=== PATIENT | male | born 1945 | race Caucasian/White ===

== ENCOUNTER 2017-04-06 07:48 | Inpatient (IN) | payer OTHER ==
[2017-03-08 10:29] VITALS: BMI 25.0
--- NOTE | 2017-03-08 11:11 | PAT Medication Instructions ---
Service Date Mar 08, 2017. Current Home Medication List Ascorbic Acid (Vitamin C), 250 MG PO QPM Aspirin (Aspirin Ec), 162 MG PO QAM Atorvastatin (Lipitor), 40 MG PO QPM Famotidine (Pepcid), 20 MG PO BID Folic Acid (Folic Acid), 800 MCG PO QPM Gabapentin (Neurontin), 400 MG PO Insulin Glargine (Toujeo Solostar), 22 UNITS INJ QPM Lisinopril (Zestril), 2.5 MG PO QAM Metformin Hcl (Glucophage), 1,000 MG PO BID Metoprolol Tartrate (Lopressor) (Lopressor), 12.5 MG PO BID [Iron], 65 UNITS PO QPM Medication Instructions For Your Scheduled Surgery - Check with surgeon and health safety instructor for instructions: Aspirin (Aspirin Ec), 162 MG PO QAM - Hold the following medications 48 hours prior to surgery: Metformin Hcl (Glucophage), 1,000 MG PO BID - Hold the following medications the morning of surgery: Famotidine (Pepcid), 20 MG PO BID Gabapentin (Neurontin), 400 MG PO Lisinopril (Zestril), 2.5 MG PO QAM - Take the following medications the morning of surgery with a sip of water: Metoprolol Tartrate (Lopressor) (Lopressor), 12.5 MG PO BID - Take the following medications as scheduled the night before surgery: [Iron], 65 UNITS PO QPM Metoprolol Tartrate (Lopressor) (Lopressor), 12.5 MG PO BID Insulin Glargine (Toujeo Solostar), 22 UNITS INJ QPM Folic Acid (Folic Acid), 800 MCG PO QPM Famotidine (Pepcid), 20 MG PO BID Atorvastatin (Lipitor), 40 MG PO QPM Ascorbic Acid (Vitamin C), 250 MG PO QPM If you have any questions please call us at [phone] or [phone] or [phone]
--- NOTE | 2017-03-08 11:58 | DIAGNOSTIC IMAGING REPORT ---
CHEST PREADMISSION(PA/LAT) CLINICAL HISTORY: 71 years-old Male presenting with preoperative assessment. TECHNIQUE: PA and lateral views of the chest were obtained. COMPARISON: None. FINDINGS: Median sternotomy wires and mediastinal surgical clips noted with evidence of coronary artery bypass grafting. Mild elevation of the left hemidiaphragm. Lungs and pleural spaces clear. Osseous structures normal. Upper abdomen normal. IMPRESSION: 1. No acute cardiopulmonary disease. Electronically signed by: Bg Mcgrath M.D. 03/08/2017 11:56 AM Dictated Date/Time: 03/08/2017 11:55 AM
[2017-03-08 12:47] LABS: PARTIAL THROMBOPLASTIN RATIO 0.9; PROTHROMBIN TIME (PATIENT) 10.3 SECONDS (9.0-12.0)
[2017-03-08 12:56] LABS: HEMATOCRIT 36.8 % (42-52); MEAN CELL VOLUME 90.4 fL (80-100); MEAN CORPUSCULAR HEMOGLOBIN 30.7 pg (25-34); MEAN PLATELET VOLUME 12.4 fL (7.4-10.4); PLATELET COUNT 121 K/uL (130-400); RED BLOOD COUNT 4.07 M/uL (4.7-6.1); WHITE BLOOD COUNT 6.27 K/uL (4.8-10.8)
[2017-03-08 12:57] LABS: BASO % 0.5 %; BASO ABS # 0.03 K/uL (0-0.2); COMPLETE YES; EOS % 4.5 %; IG% 0.2 %; LARGE PLATELETS 1+; LYMPH % 26.8 %; LYMPH ABS # 1.68 K/uL (1.2-3.4); MONO % 8.3 %; NEUT % 59.7 %; PLT ESTIMATE DECREASED
[2017-03-08 13:00] LABS: ESTIMATED AVERAGE GLUCOSE 275 mg/dl; HA1C FLAG Normal (Normal)
[2017-03-08 13:09] LABS: BLOOD UREA NITROGEN 29 mg/dl (7-18); BUN/CREATININE RATIO 29.8 (10-20); C-REACTIVE PROTEIN < 0.29 mg/dl (0-0.29); CALCIUM 9.1 mg/dl (8.5-10.1); CARBON DIOXIDE 25 mmol/L (21-32); CHLORIDE 104 mmol/L (98-107); CREATININE 0.97 mg/dl (0.60-1.40); GLUCOSE 322 mg/dl (70-99); POTASSIUM 4.6 mmol/L (3.5-5.1); SODIUM 139 mmol/L (136-145)
[2017-03-08 13:21] LABS: BETA-HYDROXYBUTYRATE 1.34 mg/dL (0.2-2.81)
--- NOTE | 2017-04-02 22:27 | HISTORY & PHYSICAL EXAMINATION ---
DATE OF ADMISSION: 04/06/2017 CHIEF COMPLAINT: Bilateral knee pain, left side greater than right. 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 He has a long history of bilateral knee pain and discomfort. He describes it has gotten worse over time. It was more of the right side in the past but now the left side is more bothersome for him. He was actually scheduled for surgery by Dr. Alarcon but canceled due to his poor glucose control. He has been working hard with his doctor, Dr. Blair to get this under better control. 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 He now would like to have his left knee replaced. He is open to do the right one 3 months later. He has to use a cane to get around. He cannot walk anything more than a block at most. He can ride his tractor and that is about all he can do activity high. Of note, the patient does have a history of blood clot in his right leg after heart surgery in 2015. He apparently had 4-vessel CABG at [facility]. He has been taken off his Coumadin. He has no known clotting disorder. PAST MEDICAL HISTORY: 1. Coronary artery disease, status post 4-vessel bypass in [facility] 12/23/2015. 2. Elevated cholesterol. 3. Type 2 diabetes, poorly controlled. 4. Hypertension. PAST SURGICAL HISTORY: Include 4-vessel CABG done on 01/20/2016. ALLERGIES: None. CURRENT MEDICINES: Include: 1. Metformin 1000 mg twice a day. 2. Gabapentin 400 mg 3 times a day. 3. Atorvastatin 40 mg. 4. Metoprolol 25 mg a day. 5. Famotidine 20 mg a day. 6. Glimepiride 1 mg a day. 7. Insulin unspecified dose. 8. Low dose aspirin twice a day. SOCIAL HISTORY: A 71-year-old male patient from [place]. 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 FAMILY HISTORY: Negative for diabetes, heart disease or blood clots. REVIEW OF SYSTEMS: Significant for poorly controlled diabetes. He has been working hard to get this under better control. He does have a history of a DVT in his right leg apparently after his heart surgery. No known clotting disorder. He is off blood thinners. PHYSICAL EXAMINATION: GENERAL: Reveals a healthy pleasant elderly male. He looks a little older than his stated age. HEENT: Benign. NECK: Supple. No lymphadenopathy. LUNGS: Clear to auscultation. HEART: Has a regular rate and rhythm. ABDOMEN: Soft, nontender, nondistended. EXTREMITIES: Grossly neurovascularly intact except as follows: Examination of both knees reveals the patient walks with a severe waddling gait with varus alignment with varus stress bilaterally. He comes in using a cane. His both knees appear very unstable. Examination of the left knee reveals a marked ganglion and large fluid collection medial to the knee. He has varus deformity. Range of motion is 15 to about 90 degrees and very stiff. No pain with hip motion. Slight stasis changes distally. Examination of the right knee reveals a marked varus deformity. Some slight stasis and dysvascular changes. Range of motion is 15-90. No pain with hip motion. X-RAYS: X-rays of both knees were reviewed. It shows advanced bilateral knee DJD, look about equal severity. He has a large soft tissue mass on the medial side of the left knee. Some fragmentation of the tibial plateau. 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 He is markedly debilitated by his knee arthritis. Unfortunately, he has pretty poor glucose control despite valiant efforts to control it. PLAN: We talked about treatment. He really like to have his both knees replaced as he is debilitated by his disease. We talked about the increased risk with his poorly controlled diabetes and he wants to proceed. We will take him to the operating room and do a left knee replacement. Hopefully, we will be able to do the right one 3 months later. We will likely put vancomycin in the cement. The risks and benefits of this procedure were explained to the patient including but not limited to DVT, PE, , infection, neurological, neurovascular, bleeding problems, pain, limited range of motion, stiffness, failure to relieve symptoms, incomplete relief of symptoms, need for further surgery in the future, fracture, leg length inequality, nerve palsy, infection, etc. The patient understands and desires to proceed. Informed consent was obtained. We will likely have the [facility] hospitalist following him and help with his diabetes controlled in the hospital. His bread jockey is Dr. Turner with [facility] in [place]. We can have them follow him as needed. As far as discharge plans, he is planning to be discharged to home using [facility] home health program.
[2017-04-06] VITALS (10 sets, daily range): BP systolic 117–166; BP diastolic 67–98; PULSE 61–73; TEMP 36.2–37; O2SAT 95–99; Ht 167.6 cm; Wt 70.3 kg
[~2017-04-06] VITALS: Ht 167.6 cm; Wt 70.3 kg
[2017-04-06] MEDS: BUPIVACAINE LIPOSOME 266 MG, BUPIVACAINE/EPINEPHRINE INJ 50 ML, SODIUM CHLORIDE 0.9% PF... INFIL SCH ×6 (06:00→12:53)
[~2017-04-06 07:48] MED LIST: ACETAMINOPHEN 500 MG TAB PO SCH; ASCO250T4 PO; ASPI81TA28 PO; BUPIVACAINE 0.25% 30 ML VIAL ONE; BUPIVACAINE 0.5 % 5 MG/1 ML PF 10ML VIAL ONE; CEFAZOLIN 2000MG IV PUSH 10 ML IV SCH; FAMO20TA11 PO; FAMOTIDINE 20 MG TAB PO SCH; FOLI800T PO; GABA-113 PO; GABAPENTIN 300 MG CAP PO SCH; INSU1.2I INJ; IRON PO; LACTATED RINGER'S 1000ML 1,000 ML IV SCH; LACTATED RINGER'S 1000ML 500 ML IV ONE; LACTATED RINGER'S 1000ML IV SCH; LISI-729 PO; LPT/40 PO; METF-384 PO; METO25TA56 PO; METOCLOPRAMIDE HCL 10 MG TAB PO SCH; SCOPOLAMINE 1.5 MG TDSY TD SCH; TRANEXAMIC ACID INJ 1,000 MG in SYRINGE 0 ML IV SCH
--- NOTE | 2017-04-06 08:52 | History & Physical Bridge Note ---
H&P Re-Evaluation Bridge Note: I have examined the patient, reviewed the History & Physical and in the interval since the performance of the History & Physical I have noted the following changes of clinical significance: No changes noted
[2017-04-06] MEDS ORDERED: FENTANYL CITRATE INJ 50 MCG/1 ML 2 ML VIAL ONE (09:47)
[2017-04-06] MEDS ORDERED: MIDAZOLAM HCL 1 MG/ML 2ML VIAL ONE (09:47)
[2017-04-06] MEDS ORDERED: PROPOFOL IV EMULSION 10 MG/ML 20 ML VIAL IV ONE (09:47)
[2017-04-06] MEDS ORDERED: LIDOCAINE HCL 2% 2 ML VIAL (20MG/ML) ONE (09:47)
[2017-04-06] MEDS ORDERED: BACITRACIN 50000 UNIT VIAL ONE (10:59)
[2017-04-06] MEDS ORDERED: BUPIVACAINE LIPOSOME 1/3% 266 MG/20 ML VIAL INFIL ONE (10:59)
[2017-04-06] MEDS ORDERED: BUPIVACAINE/EPINEPHRINE 0.25% 1:200,000 30 ML VIAL ONE (10:59)
[2017-04-06] MEDS ORDERED: VANCOMYCIN HCL 1000MG/20ML VIAL ONE (11:00)
[2017-04-06] MEDS ORDERED: ONDANSETRON INJ 2 MG/ML 2 ML VIAL IV PRN ×2 (11:15→13:15)
[2017-04-06] MEDS ORDERED: ATROPINE SULFATE 0.1 MG/ML 5ML SYR IV PRN (11:15)
[2017-04-06] MEDS ORDERED: EpHEDrine SULFATE INJ 50 MG/ML AMP IV PRN (11:15)
[2017-04-06] MEDS ORDERED: EpHEDrine SULFATE INJ 50 MG/ML AMP ONE (12:11)
[2017-04-06] MEDS ORDERED: SODIUM CHLORIDE 0.9% INJ 10 ML VIAL ONE (12:11)
[2017-04-06] MEDS ORDERED: GLYCOPYRROLATE INJ 0.2 MG/ML VIAL ONE (12:13)
[2017-04-06] MEDS: SODIUM CHLORIDE 0.9% PF 50 ML VIAL ONE ×2 (12:56→13:01)
--- NOTE | 2017-04-06 13:10 | [facility] Post Operative Brief Note ---
Immediate Operative Summary Operative Date Apr 06, 2017. Pre-Operative Diagnosis Left knee degenerative joint disease Post-Operative Diagnosis same as pre-operative Procedure(s) Performed Left Total Knee Replacement- Cemented Surgeon Dr. Forrest Tay Test Operator Surgeon(s) ADALBERTO Banks Estimated Blood Loss 50ml Findings Left Knee DJD Fluids (cc crystalloids) 1400 cc Specimens Permanent Specimen A: Left knee bone and tissue Drains None Anesthesia Spinal Complication(s) None Disposition Recovery Room / PACU
[2017-04-06] MEDS ORDERED: METOCLOPRAMIDE HCL INJ 5 MG/ML 2 ML VIAL IV PRN (13:15)
[2017-04-06] MEDS ORDERED: ALUMINUM/MAGNESIUM/SIMETH (MAALOX MAX) 30 ML UDC PO PRN (13:15)
[2017-04-06] MEDS ORDERED: ZOLPIDEM TARTRATE 5 MG TAB PO PRN (13:15)
[2017-04-06] MEDS ORDERED: GLUCOSE 40% GEL 15 GM TUBE PO PRN (13:15)
[2017-04-06] MEDS ORDERED: GLUCAGON FOR INJ 1 MG VIAL SQ PRN (13:15)
[2017-04-06] MEDS ORDERED: GLUCOSE 10 TABS/TUBE PO PRN (13:15)
[2017-04-06] MEDS ORDERED: SILVER SULFADIAZINE 1% CR 50 GM JAR EXT PRN (13:15)
[2017-04-06] MEDS ORDERED: OXYCODONE HCL IR 5 MG TAB (IMMEDIATE RELEASE) PO PRN (13:15)
[2017-04-06] MEDS ORDERED: HYDROmorphone INJ 0.5 MG/0.5 ML SYR IV PRN ×2 (13:15→13:30)
[2017-04-06] MEDS ORDERED: BISACODYL 10 MG SUPP PR PRN (13:15)
[2017-04-06] MEDS ORDERED: MAGNESIUM HYDROXIDE SUSP 30 ML UDC PO PRN (13:15)
[2017-04-06] MEDS ORDERED: DEXTROSE 50% 50 ML SYR IV PRN (13:15)
--- NOTE | 2017-04-06 14:35 | Anesthesiology Progress Note ---
Anesthesia Post Op Note Date & Time Apr 06, 2017 at 14:35 Vital Signs Pain Intensity: 0 Vital Signs Past 12 Hours Date Time Temp Pulse Resp B/P (MAP) Pulse Ox O2 Delivery O2 Flow Rate FiO2 04/06/17 14:23 61 12 97 04/06/17 14:23 36.7 62 12 04/06/17 14:21 125/71 04/06/17 14:18 66 13 98 04/06/17 14:18 62 13 04/06/17 14:16 118/68 04/06/17 14:13 61 04/06/17 14:13 63 16 97 04/06/17 14:11 125/66 04/06/17 14:08 67 15 97 04/06/17 14:08 65 15 04/06/17 14:06 130/78 04/06/17 14:03 65 10 99 04/06/17 14:03 62 10 04/06/17 14:01 139/72 04/06/17 13:58 60 13 04/06/17 13:58 58 13 99 04/06/17 13:56 131/79 04/06/17 13:53 59 12 99 04/06/17 13:53 59 12 04/06/17 13:51 135/77 04/06/17 13:48 73 13 99 04/06/17 13:48 72 13 04/06/17 13:46 135/72 04/06/17 13:43 72 15 04/06/17 13:43 70 15 97 04/06/17 13:41 136/77 04/06/17 13:38 70 14 04/06/17 13:38 69 14 98 04/06/17 13:36 136/80 04/06/17 13:33 73 8 98 04/06/17 13:33 73 8 04/06/17 13:31 150/71 04/06/17 13:28 57 8 04/06/17 13:28 60 8 98 04/06/17 13:26 130/70 04/06/17 13:23 72 14 97 04/06/17 13:23 68 14 04/06/17 13:20 131/69 04/06/17 13:13 36.9 75 16 133/74 95 Oxymask 7 04/06/17 08:18 36.8 72 20 163/98 98 Room Air Notes Mental Status: alert / awake / arousable, participated in evaluation Pt Amnestic to Procedure: Yes Nausea / Vomiting: adequately controlled Pain: adequately controlled Airway Patency, RR, SpO2: stable & adequate BP & HR: stable & adequate Hydration State: stable & adequate Neuraxial Anesthesia: was administered, sensory block is resolving Anesthetic Complications: no major complications apparent
--- NOTE | 2017-04-06 14:36 | OPERATIVE REPORT ---
DATE OF OPERATION: 04/06/2017 PREOPERATIVE DIAGNOSIS: Left knee degenerative joint disease. POSTOPERATIVE DIAGNOSIS: Same. PROCEDURE PERFORMED: Left cemented posterior stabilized total knee arthroplasty. COMPLICATIONS: None. ESTIMATED BLOOD LOSS: 50 mL FLUID REPLACEMENT: 1400 mL crystalloid fluid replacement. TOURNIQUET TIME: 70 minutes at 300 mmHg. ANESTHESIA: Spinal with adductor canal block. DRAINS: None. SPECIMENS: Left knee sent for pathology. 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 He has been through extensive conservative treatment over the years. It has got to the point where he is having trouble to even walk with the use assistance devices. Both knees were severely debilitated. He had been scheduled for surgery previously, but it was canceled due to poorly controlled diabetes. He and his medical doctor has been trying to manage this and felt like it has been optimized as good as possible. The patient has now elected to proceed with total knee arthroplasty. OPERATIVE FINDINGS: Operative findings revealed advanced left knee DJD. He had a very stiff knee with about a 20-25 degree flexion contracture and could flex to only about 90 degrees. He has a fixed varus deformity to his knee and a very large ganglion, probably about 10 cm in diameter over the medial side of his knee. He had grade 4 changes of the medial femoral condyle and medial tibial plateau. He had extensive thickening of the medial tissues and adherence to the bone. OPERATIVE IMPLANTS: Operative implants consisted of: 1. Biomet Vanguard size 65 left posterior stabilized femoral component. 2. Biomet size 75 tibial tray. 3. A 12-mm posterior stabilized polyethylene plus insert. 4. A 34 x 8.5 all poly patella. OPERATIVE PROCEDURE: The patient taken to the operating room, identified and placed on the operating table in supine position. All contact areas were appropriately padded. IV antibiotics were provided by anesthesia team. A spinal anesthetic and adductor canal block had been provided in the holding area. Roque catheter was placed in sterile fashion. The left thigh tourniquet was then placed and the left lower extremity was then prepped and draped in the usual sterile fashion. Left leg was elevated and exsanguinated with Esmarch and tourniquet was placed at 300 mmHg. An anterior approach to the left knee was then performed through a longitudinal incision centered over the patella. Sharp dissection was carried out through the subcutaneous tissues down to the level of the extensor mechanism. A medial parapatellar arthrotomy incision was made. Extensive subperiosteal dissection was carried out medially to release the entire medial and posteromedial side of his tibia. We had to do this to release the fixed varus deformity. There was a very large ganglion, which we made several holes on the inside of the ganglion. I did not feel like could it could go through the subcutaneous tissues as it would risk devascularization. We decompressed this ganglion completely. The knee was flexed. The osteophytes were taken off the distal femur. The ACL and PCL released from the distal femur and the tibia subluxated anteriorly. The external tibial alignment jig was then placed in the anterior face of the tibia and adjusted 14 mm medially. Proximal tibial cut was made to remove about a millimeter of bone from the most deficient aspect of the medial tibial plateau. The tibia was then sized to a size 75. Some osteophytes were taken off medial and posteromedially. I did do an extensive release of the posteromedial side. Attention was then drawn to the femur. The distal femur was entered with a sharp drill bit. Intramedullary canal was suctioned. A left 6-degree valgus cutting guide was placed. Distal femoral cutting block was pinned in place. Distal femoral cut was made to take an additional 3 mm of bone off the distal femur. The femur was then sized to a size 65. We downsized this slightly. The AP cutting block was pinned parallel to the epicondylar axis, which was 5 degrees of external rotation. The anterior cut, anterior chamfer, posterior cut, posterior chamfer cuts were made. Box cutting guide was placed and adjusted slightly lateral and the box cut was made. The knee was flexed. The remnants of the medial and lateral menisci were excised. The osteophytes were taken off the posterior aspect of the femur. Trial femoral component was placed. Tibial tray was pinned in maximum external rotation and the drill and the stem punch were used to create defect in proximal tibia for the tibial tray. The knee was then trialed and the 12-mm insert fit most appropriately. It was a little bit looser in flexion, but still a little bit tight in extension. The varus valgus was a little bit lax, but he has continued to have just a slight bit of flexion contracture. I did as much release as I felt possible. I therefore placed the PS plus in order to provide some additional varus valgus stability. Attention was then drawn to the patella. The patella was cleaned of all soft tissues. Patella thickness measured 21 mm in thickness and was cut down to 13. It was sized to a size 34 patella. Lug holes were drilled for a 34 patella. Lateral osteophyte was removed. Patellar button was placed. Knee was taken through range of motion and the patella tracked nicely with no thumbs test. Attention was then drawn toward placement of permanent components. All trial components were removed. Bone plug was placed in the distal femur to limit blood loss. A double batch of Palacos G cement was mixed. I did add an additional gram of vancomycin due to his poorly controlled diabetes and the severity of his knee. A size 65 left posterior stabilized femoral component, size 75 tibial tray, a 12-mm posterior stabilized polyethylene plus insert, and a 34 x 8.5 all poly patella then cemented in place. Knee was brought out into full extension until cement hardened. A final cement check was then performed. Pericapsular tissues were injected with a total of 100 mL of a combination of 20 mL of Exparel, 30 mL of normal saline, 50 mL of 0.25% Marcaine with epinephrine. The patient did receive 1 gram of tranexamic acid. The tourniquet was then let down for a tourniquet time of 70 minutes. Hemostasis was assured with use of electrocautery. The wound was once again irrigated. The extensor mechanism was then closed with a combination of #1 PDS suture and #1 Vicryl suture in a [id number] fashion. Extensor mechanism was checked and found to be intact. The subcutaneous tissues were then closed with 2-0 Dexon suture in buried interrupted fashion. Skin was closed with skin cortney. Leg was then cleaned and dried and a sterile dressing of Xeroform, 4 x 4's, sterile cast padding and Km bandage were applied. Of note, before closing, I did irrigate this large ganglion area out with extensive pulsatile lavage. I also made sure there are several fairly large holes to make sure that fluid did not reaccumulate. A sterile bandage composed of Xeroform, 4 x 4's, sterile cast padding and Km bandage were applied. The patient then transferred to the recovery room in stable condition. The patient tolerated the procedure well without complications. All needle and sponge counts were correct at the end of the operation. I attest to the content of the Intraoperative Record and any orders documented therein. Any exception s are noted below.
--- NOTE | 2017-04-06 14:38 | DIAGNOSTIC IMAGING REPORT ---
L KNEE 1 OR 2 VIEWS ROUTINE CLINICAL HISTORY: Postop examination. Degenerative arthritis. COMPARISON: Outside radiograph dated 02/01/2017 DISCUSSION: There are postsurgical changes of a total left knee arthroplasty and patellar resurfacing. The femoral and tibial components appear well seated. Overlying skin cortney are visualized. There is air within the soft tissues consistent with recent surgery. IMPRESSION: Postsurgical changes of a total left knee arthroplasty. Electronically signed by: Ronaldo Bear M.D. 04/06/2017 2:37 PM Dictated Date/Time: 04/06/2017 2:36 PM
[2017-04-06] MEDS ORDERED: PHARMACY GLYCEMIC MGMT CONSULT PRN (15:45)
--- NOTE | 2017-04-06 15:55 | Medical Consult ---
Consultation Date of Consultation: Apr 06, 2017. Attending Physician: Forrets Tay M.D. Reason for Consultation: Medical Management History of Present Illness This is a 71 yo M with PMHx of CAD s/p 4 vessel stenting in Nov 2015, HTN, HLD, DM II, who presents for an elective Left total knee arthroplasty by Dr. Tay on 04/06/17. Pt notes he currently has pain in the left ankle. This pain occurred prior to surgery and felt he sprained it a few days ago, but currently is much worse and sore. He is due for pain medications at this time. His left knee is still numb. He denies any other acute complaints . Past Medical/Surgical History Medical Problems: (1) CAD (coronary artery disease) (2) DM II (diabetes mellitus, type II), controlled (3) HLD (hyperlipidemia) (4) HTN (hypertension) (5) Left Knee DJD Surgical Problems: (1) S/P CABG x 4 Social History Smoking Status: Never Smoker Alcohol Use: none Drug Use: none Marital Status: Housing Status: lives with family Allergies Coded Allergies: No Known Allergies (Verified , 04/06/17) Current Inpatient Medications Current Inpatient Medications Medications (Trade) Dose Ordered Sig/Nora Route Start Time Stop Time Status Last Admin Dose Admin Cefazolin Sodium 10 ml @ 2.5 mls/min PREOP IV 04/06/17 06:00 04/06/17 18:00 04/06/17 11:13 2.5 MLS/MIN Acetaminophen (Tylenol Tab) 1,000 mg PREOP PO 04/06/17 06:00 04/06/17 18:00 04/06/17 08:44 1,000 MG Bupivacaine Liposome 266 mg/ Bupivacaine HCl/ Epinephrine Bitart 50 ml/ Sodium Chloride 30 ml/Syringe 100 ml @ 0 mls/hr 06 INFIL 04/06/17 06:00 04/06/17 18:00 Famotidine (Pepcid Tab) 20 mg PREOP PO 04/06/17 06:00 04/06/17 18:00 04/06/17 08:44 20 MG Gabapentin (Neurontin Cap) 300 mg PREOP PO 04/06/17 06:00 04/06/17 18:00 04/06/17 08:43 300 MG Metoclopramide HCl (Reglan Tab) 10 mg PREOP PO 04/06/17 06:00 04/06/17 18:00 04/06/17 08:43 10 MG Miscellaneous (Remove Transderm-Scop Patch) 1 ea Q72H N/A 04/09/17 06:00 04/09/17 06:01 Miscellaneous Information (Check Scopolamine Patch Placement) 1 ea QS N/A 04/06/17 16:00 04/09/17 05:59 Lactated Ringer's 1,000 ml @ 15 mls/hr Q24H IV 04/06/17 06:00 04/07/17 05:59 04/06/17 08:43 15 MLS/HR Lactated Ringer's 1,000 ml @ 60 mls/hr [id number] IV 04/06/17 06:00 04/06/17 22:39 Ondansetron HCl (Zofran Inj) 4 mg ONE PRN IV 04/06/17 11:15 04/06/17 16:15 Ephedrine Sulfate (EpHEDrine SULFATE INJ) 5 mg Q5M PRN IV 04/06/17 11:15 04/06/17 16:15 Atropine Sulfate (Atropine Sulfate 0.1MG/Ml Inj) 0.5 mg Q1M PRN IV 04/06/17 11:15 04/06/17 16:15 Sodium Chloride 1,000 ml @ 100 mls/hr Q10H IV 04/06/17 13:10 04/07/17 13:09 Cefazolin Sodium 1000 mg/Syringe 5 ml @ 100 mls/hr Q8H IV 04/06/17 20:00 04/07/17 04:02 Ketorolac Tromethamine (Toradol Inj) 15 mg Q6H IV. 04/06/17 16:00 04/07/17 15:59 Oxycodone HCl (Roxicodone Immediate Rel Tab) 1 TABLET FOR PAIN RATING... Q4H PRN PO 04/06/17 13:15 04/20/17 13:14 Acetaminophen (Tylenol Tab) 1,000 mg Q8H PO 04/06/17 16:00 05/06/17 13:14 Magnesium Hydroxide (Milk Of Magnesia Susp) 30 ml Q6H PRN PO 04/06/17 13:15 05/06/17 13:14 Bisacodyl (Dulcolax Supp) 10 mg DAILY PRN ME 04/06/17 13:15 05/06/17 13:14 Senna (Senokot Tab) 17.2 mg HS PO 04/06/17 21:00 05/06/17 20:59 Docusate Sodium (coLACE CAP) 100 mg BID PO 04/06/17 21:00 05/06/17 20:59 Al Hydrox/Mg Hydrox/Simethicone (Maalox Max Susp) 15 ml Q4H PRN PO 04/06/17 13:15 05/06/17 13:14 Zolpidem Tartrate (Ambien Tab) 5 mg HSZ PRN PO 04/06/17 13:15 05/06/17 13:14 Multivitamins (Multivitamin Tab) 1 tab QAM PO 04/07/17 09:00 05/07/17 08:59 Ondansetron HCl (Zofran Inj) 4 mg Q6H PRN IV 04/06/17 13:15 05/06/17 13:14 Metoclopramide HCl (Reglan Inj) 10 mg Q6H PRN IV 04/06/17 13:15 05/06/17 13:14 Ferrous Gluconate (Ferrous Gluconate Tab) 324 mg TIDM PO 04/06/17 17:45 05/06/17 17:59 Pantoprazole Sodium (Protonix Tab) 40 mg QAM PO 04/07/17 09:00 05/07/17 08:59 Silver Sulfadiazine (Silvadene 1% Crm 50GM Jar) 1 appln BID PRN EXT 04/06/17 13:15 05/06/17 13:14 Tapentadol (Nucynta Er Tab) 50 mg Q12 PO 04/06/17 21:00 05/06/17 20:59 Tranexamic Acid 1000 mg/Sodium Chloride 110 ml @ 660 mls/hr Q6H IV 04/06/17 19:00 04/06/17 19:09 Atorvastatin Calcium (Lipitor Tab) 40 mg QPM PO 04/06/17 21:00 05/06/17 20:59 Famotidine (Pepcid Tab) 20 mg BID PO 04/06/17 21:00 05/06/17 20:59 Gabapentin (Neurontin Cap) 400 mg TID PO 04/06/17 21:00 05/06/17 20:59 Lisinopril (Zestril Tab) 2.5 mg QAM PO 04/07/17 09:00 05/07/17 08:59 Metoprolol Tartrate (Lopressor Tab) 12.5 mg BID PO 04/06/17 21:00 05/06/17 20:59 Ascorbic Acid (Vitamin C Tab) 250 mg QPM PO 04/06/17 21:00 05/06/17 20:59 Folic Acid (Folvite Tab) 800 mcg QPM PO 04/06/17 21:00 05/06/17 20:59 Insulin Glargine (Lantus Solostar Pen) 22 units QPM SQ 04/07/17 21:00 05/07/17 20:59 Insulin Human Regular (novoLIN-R) SLIDING SCALE ACHS SC 04/06/17 16:00 05/06/17 15:59 Glucose (Glucose 40% Gel) 15-30 GRAMS 15 GRAMS... UD PRN PO 04/06/17 13:15 05/06/17 13:14 Glucose (Glucose Chew Tab) 4-8 Tablets 4 Tabl... UD PRN PO 04/06/17 13:15 05/06/17 13:14 Dextrose (Dextrose 50% 50ML Syringe) 25-50ML OF 50% DW IV FOR... UD PRN IV 04/06/17 13:15 05/06/17 13:14 Glucagon (Glucagon Inj) 1 mg UD PRN SQ 04/06/17 13:15 05/06/17 13:14 Hydromorphone HCl (Dilaudid Inj) 0.5 mg Q1H PRN IV 04/06/17 13:15 04/20/17 13:14 Rivaroxaban (Xarelto Tab) 10 mg DAILY PO 04/07/17 14:00 05/07/17 13:59 Insulin Glargine (Lantus Solostar Pen) 18 units TODAY@2100 SQ 04/06/17 21:00 04/06/17 21:01 Miscellaneous Information (Consult Glycemic Management Pharmacy) 1 ea UD PRN N/A 04/06/17 15:45 05/06/17 15:44 Review of Systems Constitutional: No fever, No chills, No sweats, No weight loss Eyes: No redness, No diplopia ENT: No sore throat, No trouble swallowing Respiratory: No cough, No sputum, No shortness of breath, No dyspnea on exertion, No dyspnea at rest Cardiovascular: No chest pain, No edema Abdomen: No pain, No nausea, No vomiting, No diarrhea, No constipation Musculoskeletal: + joint pain (L ankle, L knee without pain), No swelling Neurologic: + numbness/tingling (L knee) Endocrine: No fatigue Integumentary: No rash, No itch Physical Exam Date Time Temp Pulse Resp B/P (MAP) Pulse Ox O2 Delivery O2 Flow Rate FiO2 04/06/17 15:37 36.2 64 16 136/77 (96) 99 Nasal Cannula 2.0 04/06/17 15:10 36.4 65 16 125/72 (89) 98 Nasal Cannula 2.0 04/06/17 14:40 Nasal Cannula 2.0 04/06/17 14:40 36.8 72 16 126/70 (88) 95 Nasal Cannula 2.0 04/06/17 14:23 61 12 97 04/06/17 14:23 36.7 62 12 04/06/17 14:21 125/71 04/06/17 14:18 66 13 98 04/06/17 14:18 62 13 04/06/17 14:16 118/68 04/06/17 14:13 61 04/06/17 14:13 63 16 97 04/06/17 14:11 125/66 04/06/17 14:08 67 15 97 04/06/17 14:08 65 15 04/06/17 14:06 130/78 04/06/17 14:03 65 10 99 04/06/17 14:03 62 10 04/06/17 14:01 139/72 04/06/17 13:58 60 13 04/06/17 13:58 58 13 99 04/06/17 13:56 131/79 04/06/17 13:53 59 12 99 04/06/17 13:53 59 12 04/06/17 13:51 135/77 04/06/17 13:48 73 13 99 04/06/17 13:48 72 13 04/06/17 13:46 135/72 04/06/17 13:43 72 15 04/06/17 13:43 70 15 97 04/06/17 13:41 136/77 04/06/17 13:38 70 14 04/06/17 13:38 69 14 98 04/06/17 13:36 136/80 04/06/17 13:33 73 8 98 04/06/17 13:33 73 8 04/06/17 13:31 150/71 04/06/17 13:28 57 8 04/06/17 13:28 60 8 98 04/06/17 13:26 130/70 04/06/17 13:23 72 14 97 04/06/17 13:23 68 14 04/06/17 13:20 131/69 04/06/17 13:13 36.9 75 16 133/74 95 Oxymask 7 04/06/17 08:18 36.8 72 20 163/98 98 Room Air General Appearance: WD/WN, no apparent distress Head: normocephalic, atraumatic Eyes: PERRL, EOMI ENT: hearing grossly normal, pharynx normal Neck: supple, no JVD Respiratory/Chest: chest non-tender, normal breath sounds, no respiratory distress, no accessory muscle use, + pertinent finding (on 2 L via NC) Cardiovascular: regular rate, rhythm, normal peripheral pulses, + systolic murmur (grade II/) Abdomen/GI: normal bowel sounds, non tender, soft Genitourinary - Male: + pertinent finding (murray catheter in place draining clear yellow urine) Back: normal inspection Extremities/Musculoskelatal: normal inspection, no calf tenderness, no pedal edema Neurologic/Psych: alert, normal mood/affect, oriented x 3 Skin: normal color, warm/dry Laboratory Results Last 24 Hours Test 04/06/17 10:55 04/06/17 13:22 Bedside Glucose 239 mg/dl 213 mg/dl Assessment & Plan (1) Left Knee DJD Status: Acute Assessment & Plan: - S/p Left TKA by Dr. Tay on 04/06/17 - Pain management, bowel regimen and DVT ppx per primary team - PT/OT - CM to assist with rehab planning- pt unsure at this time but leaning toward home with outpatient PT (2) CAD (coronary artery disease) Status: Chronic Assessment & Plan: - Completed in Nov 2015 at [facility] - Continue on home meds: metoprolol tartrate 12.5 mg BID, lisinopril 2.5 mg daily, atorvastatin 40 mg daily, (3) HTN (hypertension) Assessment & Plan: - Cont lisinopril 2.5 mg daily, metoprolol tartrate 12.5 mg BID (4) HLD (hyperlipidemia) Assessment & Plan: - Cont atorvastatin 40 mg QPM (5) DM II (diabetes mellitus, type II), controlled Status: Chronic Assessment & Plan: - Continue on Lantus 18 U tonight, then resume NUCLEAR CONTROL OPERATOR med of 22 U QPM - ISS with accbola ACHS - A1C = 11.2 on 03/08, no need to recheck at this time Problem Qualifiers (1) CAD (coronary artery disease): Coronary Disease-Associated Artery/Lesion type: [place] artery [place] vs. transplanted heart: [place] heart Associated angina: angina presence unspecified Qualified Codes: I25.10 - Atherosclerotic heart disease of [place] coronary artery without angina pectoris (2) DM II (diabetes mellitus, type II), controlled: Diabetes mellitus complication status: with unspecified complications Diabetes mellitus care home insulin use: with terminal superintendent use Qualified Codes: E11.8 - Type 2 diabetes mellitus with unspecified complications; Z79.4 - termite helper (current) use of insulin
--- NOTE | 2017-04-06 16:06 | Pharmacy Progress Note ---
Glycemic Control Intl Consult Date of Service Apr 06, 2017. Scope Glycemic Pharmacist consulted by Dr Tay on 04/06/17 for glycemic control and to write orders per [facility] inpatient glycemic control protocol Objective Weight (Kilograms): 70.300 Accuchecks BSG (last 24hrs): Test 04/06/17 10:55 04/06/17 13:22 Bedside Glucose 239 mg/dl (70-99) 213 mg/dl (70-99) HbA1c Item Value Date Time Hemoglobin A1c 11.2 % H 03/08/17 1120 Estimated Average Glucose 275 mg/dl 03/08/17 1120 Recent Pertinent Medications Outpatient Anti-diabetic Regimen: * Toujeo (insulin glargine U-300) 22 units SQ PM * Metformin 1,000mg PO BID Risk Factors for Insulin Resistance: * Recent Surgery * Diet * Baseline poor control Assessment & Plan ASSESSMENT: * 71yo T2DM male with poor outpatient control per recent A1c. * Hyperglycemia is an independent risk factor for mortality, infection, and increased length of stay. * Pt is maintained on Toujeo (insulin glargine U-300) as an outpatient which is not stocked/non-formulary. Will change to Lantus per automatic P&T approved substitution. * Pt is maintained on metformin as an outpatient * Oral agents are not recommended for inpatient use d/t drug interactions, changing PO intake, and difficulty titrating for acute hyper/hypoglycemia. ADA recommends re-initiating outpatient oral agents 1-2 days prior to discharge if/ when appropriate if they were held on admission. * Will hold metformin for admission and utilize SQ basal bolus insulin regimen which is the recommended regimen for inpatient glycemic control. * Will initiate weight based insulin dosing and titrate based on BSG trends. PLAN FOR INPATIENT GLYCEMIC CONTROL: * Holding outpatient oral diabetes medications (metformin) * Basal insulin * Substitute Lantus for Toujeo. * Lantus 22 units SQ HS. * Titrate based on AM fasting BSG * Bolus insulin * NovoLog per scale ACHS or Q6hrs while NPO * Goal Range: Low 120 mg/dL - High 150 mg/dL (slightly higher goal range for elevated A1c, patient may feel hypo at otherwise normal BSGs. Ideally, BSG <150 mg/dl needed to promote healing post-operatively) * Correction Factor: 30 mg/dL/unit * Nutritional / Prandial insulin per carb ratio of 1 unit per 10 grams CHO consumed * Please note that the plan above was derived based on current level of insulin resistance and hospital stress. These recommendations are appropriate for inpatient admission only. Plan of care upon discharge will need to be reassessed to avoid potential outpatient hypo/hyperglycemia. Thank you.
[2017-04-06] MEDS: SODIUM CHLORIDE 0.9% 1000ML 1,000 ML IV SCH ×2 (16:14→23:56)
[2017-04-06] MEDS: CHECK SCOPOLAMINE PATCH PLACEMENT SCH (16:15)
[2017-04-06] MEDS: KETOROLAC TROMETHAMINE 15 MG/ML VIAL IV. SCH ×2 (16:15→21:18)
[2017-04-06] MEDS: ACETAMINOPHEN 500 MG TAB PO SCH (16:16)
[2017-04-06] MEDS: FERROUS GLUCONATE 324 MG TAB PO SCH (18:14)
--- NOTE | 2017-04-06 18:14 | PROGRESS NOTE ---
DATE: 04/06/2017 SUBJECTIVE: A 71-year-old gentleman postop from a left knee replacement. He is doing pretty well. Not having any significant pain yet. No chest pain, no shortness of breath. Not feeling dizzy or lightheaded. OBJECTIVE: VITAL SIGNS: Temperature 36.7. Vital signs stable. GENERAL: Reveals a healthy, pleasant, middle-aged male. He is lying in bed, looks reasonably comfortable. LUNGS: Clear to auscultation. HEART: Rates is regular rate and rhythm. ABDOMEN: Soft, nontender, nondistended. EXTREMITIES: Grossly neurovascularly intact except as follows: Examination of the left leg reveals the dressing to be clean, dry and intact. Leg is well aligned. He can slightly dorsiflex and plantar flex his foot and toes. Brisk refill. Sensation appears intact. X-RAYS: X-rays of the left knee from recovery room reviewed. He has a left cemented posterior stabilized total knee arthroplasty. Components looks to be in good position. No signs of problems. ASSESSMENT: A 71-year-old male very brittle and poorly controlled diabetic postop from a left knee replacement, doing pretty well. His nerve function is just returning. His pain is controlled. PLAN: 1. DVT prophylaxis including thigh-high TEDs, SCDs, and we are going to put him on Xarelto postop. He does have a history of DVT in his right leg in the past after his heart surgery. 2. PT and OT. Weightbear as tolerated. Left total knee protocol. 3. Pain control. Doing well with current pain regimen. 4. IV antibiotics x24 hours. 5. Disposition. He is planning to be discharged to home with some home health once adequately recovered. 6. Diabetes. We have the consulted the medicine service to assist in his diabetes care. Very difficult diabetes management. Will try and keep his blood glucoses under 200 if possible.
[2017-04-06] MEDS: INSULIN HUMAN REGULAR SC SCH ×2 (18:50→21:00)
[2017-04-06] MEDS ORDERED: TRANEXAMIC ACID INJ 1,000 MG in SODIUM CHLORIDE 0.9% 100ML 100 ML IV SCH (19:00)
[2017-04-06] MEDS: CEFAZOLIN IV 1,000 MG in SYRINGE 0 ML IV SCH (20:07)
[2017-04-06] MEDS: FAMOTIDINE 20 MG TAB PO SCH (20:30)
[2017-04-06] MEDS: DOCUSATE SODIUM 100 MG CAP PO SCH (20:30)
[2017-04-06] MEDS: GABAPENTIN 400 MG CAP PO SCH (20:31)
[2017-04-06] MEDS: ASCORBIC ACID 500 MG TAB PO SCH (20:31)
[2017-04-06] MEDS: ATORVASTATIN 40 MG TAB PO SCH (20:32)
[2017-04-06] MEDS: SENNA 8.6 MG TAB PO SCH (20:32)
[2017-04-06] MEDS: METOPROLOL TARTRATE 25 MG TAB PO SCH (20:32)
[2017-04-06] MEDS: TAPENTADOL ER 50 MG TABCR PO SCH (20:33)
[2017-04-06] MEDS ORDERED: INSULIN GLARGINE SOLOSTAR 100 UNITS/ML 3 ML PEN SQ SCH (21:00)
[2017-04-06] MEDS: INSULIN GLARGINE SOLOSTAR 100 UNITS/ML 3 ML PEN SQ SCH (21:00)
[2017-04-06] MEDS: FoLIC ACID TAB 400 MCG TAB PO SCH (21:17)
[2017-04-07] VITALS (9 sets, daily range): BP systolic 113–161; BP diastolic 63–83; PULSE 60–102; TEMP 36.5–37.3; O2SAT 94–99
[2017-04-07] MEDS ORDERED: NURSING DECISION MEDICATION ORDER ONE
[2017-04-07] MEDS: ACETAMINOPHEN 500 MG TAB PO SCH ×3 (00:01→16:25)
[2017-04-07] MEDS: CEFAZOLIN IV 1,000 MG in SYRINGE 0 ML IV SCH (04:07)
[2017-04-07] MEDS: INSULIN HUMAN REGULAR SC SCH ×6 (04:10→21:16)
[2017-04-07] MEDS: KETOROLAC TROMETHAMINE 15 MG/ML VIAL IV. SCH ×2 (04:12→09:15)
[2017-04-07 06:54] LABS: HEMATOCRIT 29.8 % (42-52); MEAN CELL VOLUME 90.9 fL (80-100); MEAN CORPUSCULAR HEMOGLOBIN 30.2 pg (25-34); MEAN CORPUSCULAR HGB CONC 33.2 g/dl (32-36); MEAN PLATELET VOLUME 11.3 fL (7.4-10.4); PLATELET COUNT 107 K/uL (130-400); RED BLOOD COUNT 3.28 M/uL (4.7-6.1); WHITE BLOOD COUNT 7.66 K/uL (4.8-10.8)
[2017-04-07] MEDS ORDERED: ACET-24 PO (06:56)
[2017-04-07] MEDS ORDERED: RXC5 PO (06:56)
[2017-04-07] MEDS ORDERED: XRL10 PO (06:56)
[2017-04-07] MEDS ORDERED: FRRG PO (06:56)
--- NOTE | 2017-04-07 06:58 | Discharge Instructions ---
Discharge Instructions Date of Service Apr 07, 2017. Admission Reason for Admission: Left Knee Degenerative Joint Disease Discharge Discharge Diagnosis / Problem: Left Knee Replacement Discharge Goals Goal(s): Decrease discomfort, Improve function, Increase independence, Improve disease control, Therapeutic intervention Activity Recommendations Activity Limitations: per Instructions/Follow-up section Weightbearing Status: Left weightbearing . Instructions / Follow-Up Instructions / Follow-Up ACTIVITY RECOMMENDATIONS: Physical Therapy: * You will go to physical therapy three times each week for four to six weeks after your surgery in order to regain your knee range of motion and to retrain your knee to work properly. * It is just as important to make sure you are getting your knee perfectly straight as it is to regain your knee bend. * Taking a pain pill an hour before therapy can help you have a more productive and comfortable therapy session. Home Exercise: * You were shown a series of exercises (heel props, heel slides, etc.) in the hospital. Do these exercises three to four times each day including the exercises you were shown in physical therapy. Walking: * Get up and walk several times each day. For the first four weeks, try not to stand or walk for more than one hour at a time. If you do stand or walk for more than one hour, you will not hurt anything, but your knee and leg will likely swell. * As you feel comfortable, you may change from the walker or crutches to a cane and then to independent walking. MEDICATIONS: New Medicine: * You will likely be taking one or more of these medications: 1. Oxycodone - A quick and shorter-acting pain medication. Take one to two tablets every four to six hours to lessen your pain. 2. Iron Sulfate - Take three times each day for the month after surgery to help you replace the blood lost during surgery. 3. Xarelto - Thins your blood to lessen the chance of forming a blood clot. * The most common side effects of pain medicine and iron are nausea and constipation. If nausea or constipation is too much of a problem or if you have any questions about your new medicines or doses, call [facility] at [phone]. We will try to help you manage these issues. VERY IMPORTANT TO READ AND REVIEW" Pain: * The immediate post-operative period after knee replacement surgery is often quite painful. * You are given a prescription for pain medicine. You should take it, as directed, when you need it, especially before physical therapy and before going to bed. Pain that interferes with sleep is very common and can last several months. * You will likely need pain medicine for the first four to six weeks. It will not stop all of the pain. The pain will lessen and as you feel better, you may change to milder pain medicine such as Tylenol. * The most common side effects of pain medicine are nausea and constipation, so don't take more than you need. SPECIAL CARE INSTRUCTIONS: TEDs/Elastic Stockings: * The white elastic stockings help limit swelling and prevent blood clots from forming in your legs. The more you wear them, the more they work. * Wear them for six weeks after knee replacement surgery and four weeks after partial knee replacement. Prevention of Infection: * Take antibiotics one hour before any dental cleaning, dental work, urological procedure, gastrointestinal procedure or any invasive surgery in order to prevent your new joint from getting infected. * You may get the antibiotics from the doctor performing the procedure or you may call our office at before and we will call in a prescription to the pharmacy of your choice. Things to Watch For: * Drainage from the incision site that occurs more than one week after your surgery. * Severely increased knee/leg pain or swelling. * Increased redness at the incision site. * Fever above 102 degrees Fahrenheit. * Unusual chest pain or shortness of breath. * Unusual pain or burning with urination. Call [facility] at with any of the above problems or if you have any questions about your medicines or recovery. FOLLOW UP VISIT: Make an appointment to see your doctor for approximately two weeks after surgery for a progress check and staple removal by calling the office at . Current Hospital Diet Patient's current hospital diet: Diabetes Type 2 Diet Discharge Diet Recommended Diet: Diabetes Type 2 Diet Procedures Procedures Performed: Left Total Knee Replacement- Cemented Pending Studies Studies pending at discharge: no Laboratory Results Hemoglobin A1c Test 03/08/17 11:20 Range/Units Estimated Average Glucose 275 mg/dl Hemoglobin A1c 11.2 H 4.5-5.6 % Medical Emergencies . Who to Call and When: Medical Emergencies: If at any time you feel your situation is an emergency, please call [phone] immediately. . Non-Emergent Contact Non-Emergency issues call your: Surgeon . "Provider Documentation" section prepared by Forrest Tay. . VTE Core Measure Inpt VTE Proph given/why not?: Other Anticoagulation, T.E.D. Stockings, SCD's
[2017-04-07 07:26] LABS: BUN/CREATININE RATIO 21.6 (10-20); CALCIUM 7.9 mg/dl (8.5-10.1); CREATININE 1.05 mg/dl (0.60-1.40); POTASSIUM 4.5 mmol/L (3.5-5.1)
[2017-04-07] MEDS: CHECK SCOPOLAMINE PATCH PLACEMENT SCH ×3 (08:00→16:24)
[2017-04-07] MEDS: DOCUSATE SODIUM 100 MG CAP PO SCH ×2 (08:40→21:06)
[2017-04-07] MEDS: FERROUS GLUCONATE 324 MG TAB PO SCH ×3 (08:40→18:35)
[2017-04-07] MEDS: METOPROLOL TARTRATE 25 MG TAB PO SCH ×2 (08:41→21:07)
[2017-04-07] MEDS: MULTIVITAMIN TAB PO SCH (08:41)
[2017-04-07] MEDS: GABAPENTIN 400 MG CAP PO SCH ×3 (08:41→21:08)
[2017-04-07] MEDS: TAPENTADOL ER 50 MG TABCR PO SCH (08:42)
[2017-04-07] MEDS: FAMOTIDINE 20 MG TAB PO SCH ×2 (08:42→21:08)
[2017-04-07] MEDS: LISINOPRIL 2.5 MG TAB PO SCH (08:42)
[2017-04-07] MEDS: PANTOprazole SOD 40 MG TAB PO SCH (08:42)
[2017-04-07] MEDS: SODIUM CHLORIDE 0.9% 1000ML 1,000 ML IV SCH (08:43)
[2017-04-07] MEDS ORDERED: ASPIRIN 81 MG ECTAB PO SCH (09:00)
--- NOTE | 2017-04-07 13:22 | Anesthesiology Progress Note ---
Anesthesia Post Op Note Date & Time Apr 07, 2017 at 13:21 Vital Signs Pain Intensity: 0.0 Vital Signs Past 12 Hours Date Time Temp Pulse Resp B/P (MAP) Pulse Ox O2 Delivery O2 Flow Rate FiO2 04/07/17 12:09 36.5 60 12 130/74 (92) 99 Room Air 04/07/17 10:43 70 97 04/07/17 08:02 94 Room Air 04/07/17 07:59 36.6 12 124/82 (96) 94 Room Air 04/07/17 07:56 Room Air 04/07/17 03:59 36.5 62 14 143/74 (97) 96 Room Air Notes Mental Status: alert / awake / arousable, participated in evaluation Pt Amnestic to Procedure: Yes Nausea / Vomiting: adequately controlled Pain: adequately controlled Airway Patency, RR, SpO2: stable & adequate BP & HR: stable & adequate Hydration State: stable & adequate Neuraxial Anesthesia: sensory block resolved Anesthetic Complications: no major complications apparent
--- NOTE | 2017-04-07 13:37 | Hospitalist Progress Note ---
Hospitalist Progress Note Date of Service Apr 07, 2017. (Liv Mauricio CRNP) Subjective Pt evaluation today including: conversation w/ patient, physical exam, chart review, lab review, review of inpatient medication list Voiding: no voiding problems Mr. Cole feels good. Therapy today went well, he has had minimal pain. He had a bowel movement this morning. He has no complaints ROS Constitutional: no chills, aches, sweats or fever Respiratory: no sob,cough, sputum, or wheezing Cardiac: no chest pain, palpitations, edema, orthopnea or lightheadedness GI: no abdominal pain, nausea, vomiting, diarrhea or constipation : no dysuria or hesitancy Extremities: no joint pain or weakness Skin: no rash All Other Systems: Reviewed and Negative (Liv Mauricio CRNP) Medications Medications Administered Medications (Trade) Dose Ordered Sig/Nora Route Start Time Stop Time Status Last Admin Dose Admin Cefazolin Sodium 10 ml @ 2.5 mls/min PREOP IV 04/06/17 06:00 04/06/17 18:00 DC 04/06/17 11:13 2.5 MLS/MIN Acetaminophen (Tylenol Tab) 1,000 mg PREOP PO 04/06/17 06:00 04/06/17 18:00 DC 04/06/17 08:44 1,000 MG Famotidine (Pepcid Tab) 20 mg PREOP PO 04/06/17 06:00 04/06/17 18:00 DC 04/06/17 08:44 20 MG Gabapentin (Neurontin Cap) 300 mg PREOP PO 04/06/17 06:00 04/06/17 18:00 DC 04/06/17 08:43 300 MG Metoclopramide HCl (Reglan Tab) 10 mg PREOP PO 04/06/17 06:00 04/06/17 18:00 DC 04/06/17 08:43 10 MG Scopolamine (Transderm-Scop Patch) 1.5 mg PREOP TD 04/06/17 06:00 04/06/17 15:00 DC 04/06/17 08:43 1.5 MG Miscellaneous Information (Check Scopolamine Patch Placement) 1 ea QS N/A 04/06/17 16:00 04/09/17 05:59 04/07/17 08:00 1 EA Lactated Ringer's 1,000 ml @ 15 mls/hr Q24H IV 04/06/17 06:00 04/07/17 05:59 DC 04/06/17 08:43 15 MLS/HR Lactated Ringer's 500 ml @ 999 mls/hr Q31M ONCE IV 04/06/17 06:00 04/06/17 06:30 DC 04/06/17 08:43 999 MLS/HR Bupivacaine HCl/ Epinephrine Bitart (BUPIVACAINE/EPI 0.25% Inj 1:200,000) 60 ml STK-MED ONCE .ROUTE 04/06/17 10:59 04/06/17 11:00 DC 04/06/17 12:58 50 ML Sodium Chloride (Sodium Chloride 0.9% Pf Inj) 50 ml STK-MED ONCE .ROUTE 04/06/17 10:59 04/06/17 11:00 DC 04/06/17 13:01 30 ML Bacitracin (Bacitracin Inj) 50,000 units STK-MED ONCE .ROUTE 04/06/17 10:59 04/06/17 11:00 DC 04/06/17 12:55 50,000 UNITS Bupivacaine Liposome (Exparel) 266 mg STK-MED ONCE INFIL 04/06/17 10:59 04/06/17 11:00 DC 04/06/17 12:57 266 MG Vancomycin HCl (Vancomycin Inj) 50 mg STK-MED ONCE .ROUTE 04/06/17 11:00 04/06/17 11:01 DC 04/06/17 12:55 50 MG Sodium Chloride 1,000 ml @ 100 mls/hr Q10H IV 04/06/17 13:10 04/07/17 13:09 DC 04/07/17 08:43 100 MLS/HR Cefazolin Sodium 1000 mg/Syringe 5 ml @ 100 mls/hr Q8H IV 04/06/17 20:00 04/07/17 04:02 DC 04/07/17 04:07 100 MLS/HR Ketorolac Tromethamine (Toradol Inj) 15 mg Q6H IV. 04/06/17 16:00 04/07/17 15:59 04/07/17 09:15 15 MG Acetaminophen (Tylenol Tab) 1,000 mg Q8H PO 04/06/17 16:00 05/06/17 13:14 04/07/17 08:40 1,000 MG Senna (Senokot Tab) 17.2 mg HS PO 04/06/17 21:00 05/06/17 20:59 04/06/17 20:32 17.2 MG Docusate Sodium (coLACE CAP) 100 mg BID PO 04/06/17 21:00 05/06/17 20:59 04/07/17 08:40 100 MG Multivitamins (Multivitamin Tab) 1 tab QAM PO 04/07/17 09:00 05/07/17 08:59 04/07/17 08:41 1 TAB Ferrous Gluconate (Ferrous Gluconate Tab) 324 mg TIDM PO 04/06/17 17:45 05/06/17 17:59 04/07/17 12:54 324 MG Pantoprazole Sodium (Protonix Tab) 40 mg QAM PO 04/07/17 09:00 05/07/17 08:59 04/07/17 08:42 40 MG Tapentadol (Nucynta Er Tab) 50 mg Q12 PO 04/06/17 21:00 05/06/17 20:59 04/07/17 08:42 50 MG Tranexamic Acid 1000 mg/Sodium Chloride 110 ml @ 660 mls/hr Q6H IV 04/06/17 19:00 04/06/17 19:09 DC 04/06/17 20:07 660 MLS/HR Atorvastatin Calcium (Lipitor Tab) 40 mg QPM PO 04/06/17 21:00 05/06/17 20:59 04/06/17 20:32 40 MG Famotidine (Pepcid Tab) 20 mg BID PO 04/06/17 21:00 05/06/17 20:59 04/07/17 08:42 20 MG Gabapentin (Neurontin Cap) 400 mg TID PO 04/06/17 21:00 05/06/17 20:59 04/07/17 08:41 400 MG Lisinopril (Zestril Tab) 2.5 mg QAM PO 04/07/17 09:00 05/07/17 08:59 04/07/17 08:42 2.5 MG Metoprolol Tartrate (Lopressor Tab) 12.5 mg BID PO 04/06/17 21:00 05/06/17 20:59 04/07/17 08:41 12.5 MG Ascorbic Acid (Vitamin C Tab) 250 mg QPM PO 04/06/17 21:00 05/06/17 20:59 04/06/17 20:31 250 MG Folic Acid (Folvite Tab) 800 mcg QPM PO 04/06/17 21:00 05/06/17 20:59 04/06/17 21:17 800 MCG Insulin Human Regular (novoLIN-R) SLIDING SCALE ACHS [place] 04/06/17 16:00 05/06/17 15:59 04/07/17 12:58 4 UNITS Insulin Human Regular (novoLIN-R) SLIDING SCALE TODAY@0000,0400 [place] 04/07/17 00:00 04/07/17 04:01 DC 04/07/17 04:10 1 UNITS (Liv Mauricio CRNP) Objective Vital Signs Date Time Temp Pulse Resp B/P (MAP) Pulse Ox O2 Delivery O2 Flow Rate FiO2 04/07/17 12:09 36.5 60 12 130/74 (92) 99 Room Air 04/07/17 10:43 70 97 04/07/17 08:02 94 Room Air 04/07/17 07:59 36.6 12 124/82 (96) 94 Room Air 04/07/17 07:56 Room Air 04/07/17 03:59 36.5 62 14 143/74 (97) 96 Room Air 04/06/17 23:55 Room Air 04/06/17 23:04 36.8 69 14 117/67 (84) 96 Room Air 04/06/17 21:26 36.8 04/06/17 20:22 64 96 Room Air 04/06/17 20:20 36.3 61 16 146/74 (98) 95 Room Air 04/06/17 17:42 37.0 73 16 152/81 (104) 99 Nasal Cannula 2.0 04/06/17 16:40 36.7 64 16 166/80 (108) 99 Nasal Cannula 2.0 04/06/17 16:00 Nasal Cannula 2.0 04/06/17 15:37 36.2 64 16 136/77 (96) 99 Nasal Cannula 2.0 04/06/17 15:10 36.4 65 16 125/72 (89) 98 Nasal Cannula 2.0 04/06/17 14:40 Nasal Cannula 2.0 04/06/17 14:40 36.8 72 16 126/70 (88) 95 Nasal Cannula 2.0 04/06/17 14:23 61 12 97 04/06/17 14:23 36.7 62 12 04/06/17 14:21 125/71 04/06/17 14:18 66 13 98 04/06/17 14:18 62 13 04/06/17 14:16 118/68 04/06/17 14:13 61 04/06/17 14:13 63 16 97 04/06/17 14:11 125/66 04/06/17 14:08 67 15 97 04/06/17 14:08 65 15 04/06/17 14:06 130/78 04/06/17 14:03 65 10 99 04/06/17 14:03 62 10 04/06/17 14:01 139/72 04/06/17 13:58 60 13 04/06/17 13:58 58 13 99 04/06/17 13:56 131/79 04/06/17 13:53 59 12 99 04/06/17 13:53 59 12 04/06/17 13:51 135/77 04/06/17 13:48 73 13 99 04/06/17 13:48 72 13 04/06/17 13:46 135/72 04/06/17 13:43 72 15 04/06/17 13:43 70 15 97 04/06/17 13:41 136/77 04/06/17 13:38 70 14 04/06/17 13:38 69 14 98 04/06/17 13:36 136/80 04/06/17 13:33 73 8 98 04/06/17 13:33 73 8 (Liv Mauricio, WALESKA) Physical Exam Notes: General: no distress Eyes: normal inspection, PERLL Respiratory: chest non tender, clear to auscultation, normal breath sounds, no respiratory distress, no accessory muscle use Cardiac: regular rate and rhythm, no rub or gallop, no murmur, no edema, no jvd GI/: active bowel sounds, no abd pain or tenderness, soft, non distended Extremities: normal range of motion, normal strength, non tender, left leg dressing intact Neuro/Psych: alert and oriented x 3, normal mood and affect Skin: normal color, dry (Liv Mauricio, WALESKA) Laboratory Results Last 24 Hours Test 04/06/17 16:43 04/06/17 20:38 04/07/17 00:08 04/07/17 04:04 Bedside Glucose 180 mg/dl 134 mg/dl 116 mg/dl 152 mg/dl Test 04/07/17 06:32 04/07/17 08:12 04/07/17 11:46 White Blood Count 7.66 K/uL Red Blood Count 3.28 M/uL Hemoglobin 9.9 g/dL Hematocrit 29.8 % Mean Corpuscular Volume 90.9 fL Mean Corpuscular Hemoglobin 30.2 pg Mean Corpuscular Hemoglobin Concent 33.2 g/dl RDW Standard Deviation 43.3 fL RDW Coefficient of Variation 13.1 % Platelet Count 107 K/uL Mean Platelet Volume 11.3 fL Sodium Level 138 mmol/L Potassium Level 4.5 mmol/L Chloride Level 109 mmol/L Carbon Dioxide Level 25 mmol/L Anion Gap 4.0 mmol/L Blood Urea Nitrogen 23 mg/dl Creatinine 1.05 mg/dl Est Creatinine Clear Calc Drug Dose 57.4 ml/min Estimated GFR () 81.8 Estimated GFR (Non- 70.6 BUN/Creatinine Ratio 21.6 Random Glucose 120 mg/dl Calcium Level 7.9 mg/dl Bedside Glucose 125 mg/dl 140 mg/dl (Liv Mauricio CRNP) Assessment and Plan (1) Left Knee DJD Assessment & Plan: - S/p Left TKA by Dr. Tay on 04/06/17 - Pain management, bowel regimen and DVT ppx per primary team - PT/OT - currently considering op PT with home health for DC (2) CAD (coronary artery disease) Assessment & Plan: - Completed in Nov 2015 at [facility] - Continue home doses of metoprolol tartrate 12.5 mg BID, lisinopril 2.5 mg daily, atorvastatin 40 mg daily, (3) HTN (hypertension) Assessment & Plan: - Cont lisinopril 2.5 mg daily, metoprolol tartrate 12.5 mg BID - BP stable (4) HLD (hyperlipidemia) Assessment & Plan: - Cont atorvastatin 40 mg QPM (5) DM II (diabetes mellitus, type II), controlled Assessment & Plan: - Continue Lantus 22 U QPM - Continue ISS with acchuchetamela BELTRÁN Discharge planning: home with home health (Liv Mauricio ., WALESKA) Attending Attestation: pt seen/examined, chart reviewed, care plan d/w WALESKA Mauricio. I agree w/ the collins components of her documentation. Pt w/o cp, sob, suazo. +flatus. no abd pain. VSS gen - NAD neck - no JVD heart - RRR, 2/6 systolic murmur RUSB lungs - CTA b/l abd - soft ext - mild edema left ankle, left knee in SAMUEL wrap A/P: 1. s/p left TKR 2. CAD - resume aspirin when ok with orthopedics; no ischemic sx's at this time 3. T2DM - controlled 4. mild acute blood loss anemia - follow Ted HAAS MD (Tanmay Haas MD) Problem Qualifiers (1) CAD (coronary artery disease): Coronary Disease-Associated Artery/Lesion type: [place] artery [place] vs. transplanted heart: [place] heart Associated angina: angina presence unspecified Qualified Codes: I25.10 - Atherosclerotic heart disease of [place] coronary artery without angina pectoris (2) DM II (diabetes mellitus, type II), controlled: Diabetes mellitus complication status: with unspecified complications Diabetes mellitus correction insulin use: with rodent exterminator use Qualified Codes: E11.8 - Type 2 diabetes mellitus with unspecified complications; Z79.4 - nursing home (current) use of insulin
[2017-04-07] MEDS: RIVAROXABAN 10 MG TAB PO SCH (13:59)
--- NOTE | 2017-04-07 14:24 | PROGRESS NOTE ---
DATE: 04/07/2017 SUBJECTIVE: A 71-year-old gentleman postop day 1 from a left knee replacement. He is doing well. He says he has gotten no pain. Therapy went well. No chest pain or shortness of breath. Not feeling dizzy or lightheaded. OBJECTIVE: VITAL SIGNS: Temperature 36.5. Vital signs stable. GENERAL: Physical examination reveals a pleasant elderly male. He was lying in bed and I had to wake him this afternoon to do rounds. EXTREMITIES: Examination of the left leg reveals the leg to be well aligned. Dressing has a little bit of bloody drainage on it. It has been reinforced. He can dorsiflex and plantarflex his foot and he says this is his baseline. It does seem a bit weak, but it does sound like his baseline and similar to the opposite side. He has got brisk refill. LABORATORY DATA: Hemoglobin 9.9 and hematocrit 29.8. Electrolytes are stable. ASSESSMENT: A 71-year-old male, fairly poorly controlled diabetic, postop day 1 from a left knee replacement, doing well. Blood glucoses have been under control. He is neurologically stable and appears to be baseline. His pain is controlled. PLAN: 1. DVT prophylaxis including thigh-high TEDs, SCDs, and Xarelto. He does have a history of blood clot in his right leg after his heart surgery. 2. PT/OT. He is to weightbear as tolerated. Left total knee protocol. 3. Pain control. Doing reasonably well with current pain regimen. 4. Medical management. As per the medicine service. He is on a sliding scale insulin coverage. 5. Disposition: Plan to discharge to home and he can do home health with therapy once medically stable.
[2017-04-07] MEDS ORDERED: NURSING VERBAL MED ORDER ONE (20:15)
[2017-04-07] MEDS ORDERED: INSULIN GLARGINE SOLOSTAR 100 UNITS/ML 3 ML PEN SQ SCH (21:00)
[2017-04-07] MEDS: INSULIN GLARGINE SOLOSTAR 100 UNITS/ML 3 ML PEN SQ SCH (21:14)
[2017-04-07] MEDS: ASCORBIC ACID 500 MG TAB PO SCH (22:18)
[2017-04-07] MEDS: FoLIC ACID TAB 400 MCG TAB PO SCH (22:18)
[2017-04-07] MEDS: SENNA 8.6 MG TAB PO SCH (22:19)
[2017-04-07] MEDS: ATORVASTATIN 40 MG TAB PO SCH (22:19)
[2017-04-08] MEDS: ACETAMINOPHEN 500 MG TAB PO SCH ×2 (01:10→08:43)
[2017-04-08 07:45] VITALS: O2SAT 95
[2017-04-08 07:56] VITALS: BP 147/81; PULSE 70; TEMP 37.3; O2SAT 95
--- NOTE | 2017-04-08 08:03 | PROGRESS NOTE ---
DATE: 04/08/2017 SUBJECTIVE: A 71-year-old gentleman postop day 2 from a left knee replacement. He is doing pretty well. He denies any real significant pain. No chest pain or shortness of breath. Not feeling dizzy or lightheaded. OBJECTIVE: VITAL SIGNS: Temperature 37.3. Vital signs stable. PHYSICAL EXAMINATION: GENERAL: Reveals a pleasant elderly male. He is awake, alert and oriented this morning. EXTREMITIES: Examination of the left leg reveals the dressing to be in place. There is a little bit of bloody drainage at the inferior aspect. His leg is well aligned. He can dorsiflex and plantarflex his foot about baseline. He is neurologically stable. ASSESSMENT: A 71-year-old male who is brittle diabetic, postop day 2 from left knee replacement, doing pretty well. His pain is controlled. He is neurologically stable. PLAN: 1. DVT prophylaxis including thigh-high TEDs, SCDs, and we are going to use Xarelto for a month. 2. PT/OT. He can weightbear as tolerated. Left total knee protocol. 3. Pain control. Doing well with current pain regimen. 4. Disposition: Plan to discharge to home with home health later today if he is doing okay.
--- NOTE | 2017-04-08 08:36 | Pharmacy Progress Note ---
Pharmacy Glycemic Short Note 2 Date of Service Apr 08, 2017. OUTPATIENT ANTIDIABETIC REGIMEN: * Toujeo 22 units qPM + metformin 1 gm PO BID ASSESSMENT: * Mr Cole is a 71 y/0 M who is POD 2 for a L TKA. Yesterday, the patient received 37 units (22 units were basal insulin) and his blood sugar ranged from 110-191 mg/dL. His fasting blood sugar was 77 mg/dL indicating Lantus may be too high. Decreased Lantus to 20 units tonight (10% decrease). * Post-prandial blood sugars appear well controlled. Continue current regimen. Patient has demonstrated adequate oral intake- restart metformin tonight with dinner if patient still admitted. PLAN FOR INPATIENT GLYCEMIC CONTROL: * metformin 1 gm PO BID- starting at dinner * Basal insulin * Lantus 20 units SQ HS * Bolus insulin * NovoLog per scale ACHS or Q6hrs while NPO * Goal Range: Low 120 mg/dL - High 150 mg/dL * Correction Factor: 30 mg/dL/unit * Nutritional / Prandial insulin per carb ratio of 1 unit per 10 grams CHO consumed PLAN FOR DISCHARGE: * Patient's HbA1C is very uncontrolled. Recommend titrating upwards on Toujeo- patient may benefit from addition of Novolog with largest meal of the day.
[2017-04-08] MEDS: CHECK SCOPOLAMINE PATCH PLACEMENT SCH ×2 (08:41)
[2017-04-08] MEDS: INSULIN HUMAN REGULAR SC SCH ×2 (08:47→12:45)
[2017-04-08] MEDS: FERROUS GLUCONATE 324 MG TAB PO SCH ×2 (08:47→12:46)
[2017-04-08] MEDS: MULTIVITAMIN TAB PO SCH (08:48)
[2017-04-08] MEDS: LISINOPRIL 2.5 MG TAB PO SCH (08:48)
[2017-04-08] MEDS: RIVAROXABAN 10 MG TAB PO SCH (08:48)
[2017-04-08] MEDS: PANTOprazole SOD 40 MG TAB PO SCH (08:48)
[2017-04-08] MEDS: GABAPENTIN 400 MG CAP PO SCH (08:49)
[2017-04-08] MEDS: FAMOTIDINE 20 MG TAB PO SCH (09:19)
[2017-04-08] MEDS: DOCUSATE SODIUM 100 MG CAP PO SCH (09:19)
[2017-04-08] MEDS: METOPROLOL TARTRATE 25 MG TAB PO SCH (09:21)
[2017-04-08 11:50] VITALS: BP 147/81; PULSE 70; TEMP 37.3; O2SAT 95
--- NOTE | 2017-04-08 13:08 | Hospitalist Progress Note ---
Hospitalist Progress Note Date of Service Apr 08, 2017. (Liv Mauricio CRNP) Subjective Pt evaluation today including: conversation w/ patient, physical exam, chart review, lab review, review of inpatient medication list Voiding: no voiding problems Mr. Cole is to be discharged to home today with home health. Per nursing notes, patient had a fall over the night after forgetting he was in the hospital and getting up to the bathroom. He fell to his knees. He denies any pain or injury today. He feels well enough for discharge. ROS Constitutional: no chills, aches, sweats or fever Respiratory: no sob,cough, sputum, or wheezing Cardiac: no chest pain, palpitations, edema, orthopnea or lightheadedness GI: no abdominal pain, nausea, vomiting, diarrhea or constipation : no dysuria or hesitancy Extremities: left knee somewhat stiff but not painful Skin: no rash All Other Systems: Reviewed and Negative (Liv Mauricio CRNP) Medications Medications Administered Medications (Trade) Dose Ordered Sig/Nora Route Start Time Stop Time Status Last Admin Dose Admin Cefazolin Sodium 10 ml @ 2.5 mls/min PREOP IV 04/06/17 06:00 04/06/17 18:00 DC 04/06/17 11:13 2.5 MLS/MIN Acetaminophen (Tylenol Tab) 1,000 mg PREOP PO 04/06/17 06:00 04/06/17 18:00 DC 04/06/17 08:44 1,000 MG Famotidine (Pepcid Tab) 20 mg PREOP PO 04/06/17 06:00 04/06/17 18:00 DC 04/06/17 08:44 20 MG Gabapentin (Neurontin Cap) 300 mg PREOP PO 04/06/17 06:00 04/06/17 18:00 DC 04/06/17 08:43 300 MG Metoclopramide HCl (Reglan Tab) 10 mg PREOP PO 04/06/17 06:00 04/06/17 18:00 DC 04/06/17 08:43 10 MG Scopolamine (Transderm-Scop Patch) 1.5 mg PREOP TD 04/06/17 06:00 04/06/17 15:00 DC 04/06/17 08:43 1.5 MG Miscellaneous Information (Check Scopolamine Patch Placement) 1 ea QS N/A 04/06/17 16:00 04/09/17 05:59 04/08/17 08:41 1 EA Lactated Ringer's 1,000 ml @ 15 mls/hr Q24H IV 04/06/17 06:00 04/07/17 05:59 DC 04/06/17 08:43 15 MLS/HR Lactated Ringer's 500 ml @ 999 mls/hr Q31M ONCE IV 04/06/17 06:00 04/06/17 06:30 DC 04/06/17 08:43 999 MLS/HR Bupivacaine HCl/ Epinephrine Bitart (BUPIVACAINE/EPI 0.25% Inj 1:200,000) 60 ml STK-MED ONCE .ROUTE 04/06/17 10:59 04/06/17 11:00 DC 04/06/17 12:58 50 ML Sodium Chloride (Sodium Chloride 0.9% Pf Inj) 50 ml STK-MED ONCE .ROUTE 04/06/17 10:59 04/06/17 11:00 DC 04/06/17 13:01 30 ML Bacitracin (Bacitracin Inj) 50,000 units STK-MED ONCE .ROUTE 04/06/17 10:59 04/06/17 11:00 DC 04/06/17 12:55 50,000 UNITS Bupivacaine Liposome (Exparel) 266 mg STK-MED ONCE INFIL 04/06/17 10:59 04/06/17 11:00 DC 04/06/17 12:57 266 MG Vancomycin HCl (Vancomycin Inj) 50 mg STK-MED ONCE .ROUTE 04/06/17 11:00 04/06/17 11:01 DC 04/06/17 12:55 50 MG Sodium Chloride 1,000 ml @ 100 mls/hr Q10H IV 04/06/17 13:10 04/07/17 13:09 DC 04/07/17 08:43 100 MLS/HR Cefazolin Sodium 1000 mg/Syringe 5 ml @ 100 mls/hr Q8H IV 04/06/17 20:00 04/07/17 04:02 DC 04/07/17 04:07 100 MLS/HR Ketorolac Tromethamine (Toradol Inj) 15 mg Q6H IV. 04/06/17 16:00 04/07/17 15:59 DC 04/07/17 09:15 15 MG Acetaminophen (Tylenol Tab) 1,000 mg Q8H PO 04/06/17 16:00 05/06/17 13:14 04/08/17 08:43 1,000 MG Senna (Senokot Tab) 17.2 mg HS PO 04/06/17 21:00 05/06/17 20:59 04/07/17 22:19 17.2 MG Docusate Sodium (coLACE CAP) 100 mg BID PO 04/06/17 21:00 05/06/17 20:59 04/08/17 09:19 100 MG Multivitamins (Multivitamin Tab) 1 tab QAM PO 04/07/17 09:00 05/07/17 08:59 04/08/17 08:48 1 TAB Ferrous Gluconate (Ferrous Gluconate Tab) 324 mg TIDM PO 04/06/17 17:45 05/06/17 17:59 04/08/17 12:46 324 MG Pantoprazole Sodium (Protonix Tab) 40 mg QAM PO 04/07/17 09:00 05/07/17 08:59 04/08/17 08:48 40 MG Tapentadol (Nucynta Er Tab) 50 mg Q12 PO 04/06/17 21:00 05/06/17 20:59 Future Hold 04/07/17 08:42 50 MG Tranexamic Acid 1000 mg/Sodium Chloride 110 ml @ 660 mls/hr Q6H IV 04/06/17 19:00 04/06/17 19:09 DC 04/06/17 20:07 660 MLS/HR Atorvastatin Calcium (Lipitor Tab) 40 mg QPM PO 04/06/17 21:00 05/06/17 20:59 04/07/17 22:19 40 MG Famotidine (Pepcid Tab) 20 mg BID PO 04/06/17 21:00 05/06/17 20:59 04/08/17 09:19 20 MG Gabapentin (Neurontin Cap) 400 mg TID PO 04/06/17 21:00 05/06/17 20:59 04/08/17 08:49 400 MG Lisinopril (Zestril Tab) 2.5 mg QAM PO 04/07/17 09:00 05/07/17 08:59 04/08/17 08:48 2.5 MG Metoprolol Tartrate (Lopressor Tab) 12.5 mg BID PO 04/06/17 21:00 05/06/17 20:59 04/08/17 09:21 12.5 MG Ascorbic Acid (Vitamin C Tab) 250 mg QPM PO 04/06/17 21:00 05/06/17 20:59 04/07/17 22:18 250 MG Folic Acid (Folvite Tab) 800 mcg QPM PO 04/06/17 21:00 05/06/17 20:59 04/07/17 22:18 800 MCG Insulin Human Regular (novoLIN-R) SLIDING SCALE ACHS [place] 04/06/17 16:00 05/06/17 15:59 04/08/17 12:45 10 UNITS Rivaroxaban (Xarelto Tab) 10 mg DAILY PO 04/07/17 14:00 05/07/17 13:59 04/08/17 08:48 10 MG Insulin Glargine (Lantus Solostar Pen) 22 units QPM SQ 04/06/17 21:00 04/08/17 08:22 DC 04/07/17 21:14 22 UNITS Insulin Human Regular (novoLIN-R) SLIDING SCALE TODAY@0000,0400 [place] 04/07/17 00:00 04/07/17 04:01 DC 04/07/17 04:10 1 UNITS (Liv Mauricio CRNP) Objective Vital Signs Date Time Temp Pulse Resp B/P (MAP) Pulse Ox O2 Delivery O2 Flow Rate FiO2 04/08/17 11:50 37.3 70 16 95 Room Air 04/08/17 07:56 37.3 70 16 147/81 (103) 95 04/08/17 07:45 95 Room Air 04/08/17 00:45 Room Air 04/07/17 23:34 37.3 85 16 136/76 (96) 94 Room Air 04/07/17 18:17 36.8 102 18 161/83 (109) 95 Room Air 04/07/17 15:41 37.1 73 16 117/73 (88) Room Air 04/07/17 15:20 99 Nasal Cannula 2.0 (Liv Mauricio CRNP) Physical Exam Notes: General: no distress Eyes: normal inspection, PERLL Respiratory: chest non tender, clear to auscultation, normal breath sounds, no respiratory distress, no accessory muscle use Cardiac: regular rate and rhythm, no rub or gallop, no murmur, no edema, no jvd GI/: active bowel sounds, no abd pain or tenderness, soft, non distended Extremities: normal range of motion, normal strength, non tender, samuel bandage intact Neuro/Psych: alert and oriented x 3, normal mood and affect Skin: normal color, dry (Liv Mauricio CRNP) Laboratory Results Last 24 Hours Test 04/07/17 17:13 04/07/17 20:42 04/08/17 07:59 04/08/17 12:09 Bedside Glucose 110 mg/dl 191 mg/dl 77 mg/dl 188 mg/dl (Liv Mauricio CRNP) Assessment and Plan (1) Left Knee DJD Assessment & Plan: - S/p Left TKA by Dr. Tay on 04/06/17 - Pain management, bowel regimen and DVT ppx per primary team - PT/OT - dc today with home health (2) CAD (coronary artery disease) Assessment & Plan: - Completed in Nov 2015 at [facility] - Continue home doses of metoprolol tartrate 12.5 mg BID, lisinopril 2.5 mg daily, atorvastatin 40 mg daily, (3) HTN (hypertension) Assessment & Plan: - Cont lisinopril 2.5 mg daily, metoprolol tartrate 12.5 mg BID - BP stable (4) HLD (hyperlipidemia) Assessment & Plan: - Cont atorvastatin 40 mg QPM (5) DM II (diabetes mellitus, type II), controlled Assessment & Plan: - Continue Lantus 22 U QPM - Continue ISS with billie BELTRÁN (Liv Mauricio CRNP) Attending Attestation: pt seen/examined, chart reviewed, care plan d/w WALESKA Mauricio. I agree w/ the collins components of her documentation. Pt recalls being modestly confused last pm. During my AM rounds today he knew it was , that he was at [facility], that it was 2016, and that he had his left knee replaced. He reported mild left knee pain but no cp, sob, abd pain. +bowel movement. VSS gen - NAD neck - no JVD heart - RRR, 2/6 systolic murmur RUSB lungs - CTA b/l abd - soft ext - trace edema left ankle, left knee in SAMUEL wrap, right leg w/o edema A/P: 1. s/p left TKR 2. CAD - resume aspirin at discharge 3. T2DM - controlled 4. mild acute blood loss anemia - stable; ferrous sulfate at discharge 5. mild encephalopathy - probably hospital psychosis - resolved this AM - supportive care medically the patient is stable labs and vitals are stable no signs/symptoms of infectious process as long as left knee is stable following his fall last pm (will defer left knee management to orthopedics) he is clear from medical standpoint for discharge Ted HAAS MD (Tanmay Haas MD) Problem Qualifiers (1) CAD (coronary artery disease): Coronary Disease-Associated Artery/Lesion type: [place] artery [place] vs. transplanted heart: [place] heart Associated angina: angina presence unspecified Qualified Codes: I25.10 - Atherosclerotic heart disease of [place] coronary artery without angina pectoris (2) DM II (diabetes mellitus, type II), controlled: Diabetes mellitus complication status: with unspecified complications Diabetes mellitus extermination supervisor insulin use: with extermination supervisor use Qualified Codes: E11.8 - Type 2 diabetes mellitus with unspecified complications; Z79.4 - exterminator helper (current) use of insulin
[2017-04-08] MEDS ORDERED: METFORMIN HCL 500 MG TAB PO SCH (17:45)
[2017-04-08] MEDS ORDERED: INSULIN GLARGINE SOLOSTAR 100 UNITS/ML 3 ML PEN SQ SCH (21:00)
== END 2017-04-08 15:00 | disposition home health service (06) | DRG 470 ==
LOC: C.ACU 07:48 → C.3E 08:14 → ENRESERV 13:44
PROVIDERS: ADMIT Orthopaedic Surgery Sports Medicine; ATTEND Orthopaedic Surgery Sports Medicine
PROC: 0SRD0J9 Replacement of Left Knee Joint with Synthetic Substitute, Cemented, Open Approach (ICD-10-PCS; principal; 2017-04-06 11:00)
DX: M17.12 Unilateral primary osteoarthritis, left knee (principal); E11.42 Type 2 diabetes mellitus with diabetic polyneuropathy; I10 Essential (primary) hypertension; E78.00 Pure hypercholesterolemia, unspecified; I25.10 Atherosclerotic heart disease of native coronary artery without angina pectoris; D50.9 Iron deficiency anemia, unspecified; Z95.1 Presence of aortocoronary bypass graft; Z86.718 Personal history of other venous thrombosis and embolism; Z79.4 Long term (current) use of insulin; Z79.82 Long term (current) use of aspirin; Z79.84 Long term (current) use of oral hypoglycemic drugs; Z79.899 Other long term (current) drug therapy

== ENCOUNTER → 2017-06-07 | Outpatient (CLI) | payer OTHER ==
[~2017-06-07] MED LIST changes: +ACET-1256 PO; +ACET-24 PO; -ACETAMINOPHEN 500 MG TAB PO SCH; -ASPI81TA28 PO; -BUPIVACAINE 0.25% 30 ML VIAL ONE; -BUPIVACAINE 0.5 % 5 MG/1 ML PF 10ML VIAL ONE; -CEFAZOLIN 2000MG IV PUSH 10 ML IV SCH; -FAMOTIDINE 20 MG TAB PO SCH; +FRRG PO; -GABAPENTIN 300 MG CAP PO SCH; -LACTATED RINGER'S 1000ML 1,000 ML IV SCH; -LACTATED RINGER'S 1000ML 500 ML IV ONE; -LACTATED RINGER'S 1000ML IV SCH; +LEVO25TA5 PO; -METOCLOPRAMIDE HCL 10 MG TAB PO SCH; +RXC5 PO; -SCOPOLAMINE 1.5 MG TDSY TD SCH; -TRANEXAMIC ACID INJ 1,000 MG in SYRINGE 0 ML IV SCH; +VENL37.593 PO; +XRL10 PO
--- NOTE | 2017-06-07 11:44 | DIAGNOSTIC IMAGING REPORT ---
CHEST 2 VIEWS ROUTINE CLINICAL HISTORY: Preoperative evaluation. COMPARISON STUDY: Chest radiograph March 08, 2017. FINDINGS: There are median sternotomy wires and clips from bypass grafting. Mild to moderate elevation of left hemidiaphragm is unchanged. Cardiomediastinal silhouette is stable. There is no evidence for pulmonary edema. There is no pneumonia. IMPRESSION: 1. No acute cardiopulmonary findings. 2. Mild to moderate elevation of the left hemidiaphragm. Electronically signed by: Praneeth Solares M.D. 06/07/2017 11:43 AM Dictated Date/Time: 06/07/2017 11:42 AM
[2017-06-07 13:31] LABS: BASO % 0.6 %; BASO ABS # 0.05 K/uL (0-0.2); EOS % 2.6 %; EOS ABS # 0.23 K/uL (0-0.5); HEMATOCRIT 35.5 % (42-52); HEMOGLOBIN 11.9 g/dL (14.0-18.0); IG# 0.03 K/uL (0.00-0.02); LYMPH % 23.5 %; LYMPH ABS # 2.04 K/uL (1.2-3.4); MEAN CELL VOLUME 90.8 fL (80-100); MEAN CORPUSCULAR HEMOGLOBIN 30.4 pg (25-34); MEAN CORPUSCULAR HGB CONC 33.5 g/dl (32-36); MEAN PLATELET VOLUME 10.9 fL (7.4-10.4); MONO % 7.5 %; MONO ABS # 0.65 K/uL (0.11-0.59); NEUT % 65.5 %; NEUT ABS # 5.69 K/uL (1.4-6.5); PLATELET COUNT 216 K/uL (130-400); RED CELL DISTRIBUTION WIDTH CV 13.7 % (11.5-14.5); RED CELL DISTRIBUTION WIDTH SD 45.3 fL (36.4-46.3); WHITE BLOOD COUNT 8.69 K/uL (4.8-10.8)
[2017-06-07 14:02] LABS: BLOOD UREA NITROGEN 31 mg/dl (7-18); CALCIUM 9.2 mg/dl (8.5-10.1); CARBON DIOXIDE 24 mmol/L (21-32); CREATININE 0.89 mg/dl (0.60-1.40); GLUCOSE 103 mg/dl (70-99); POTASSIUM 4.4 mmol/L (3.5-5.1); SODIUM 141 mmol/L (136-145)
[2017-06-08 05:47] LABS: HEMOGLOBIN A1C 7.2 % (4.5-5.6)
== END | disposition home or self-care (01) ==
LOC: C.LABBC 10:52
PROVIDERS: ATTEND Orthopaedic Surgery Sports Medicine
DX: Z01.810 Encounter for preprocedural cardiovascular examination (principal); Z01.812 Encounter for preprocedural laboratory examination; Z01.818 Encounter for other preprocedural examination

== ENCOUNTER 2017-06-25 05:57 | Inpatient (IN) | payer OTHER ==
[2017-06-11 09:34] VITALS: BMI 26.0
--- NOTE | 2017-06-20 15:34 | HISTORY & PHYSICAL EXAMINATION ---
DATE OF ADMISSION: 06/25/2017 CHIEF COMPLAINT: Right knee pain and discomfort. 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 He has got a long history of bilateral knee pain and discomfort and has been through extensive conservative treatment down in [facility]. He was actually scheduled to have surgery by Dr. Alarcon in the past, but had to cancel due to elevated blood glucose levels. He has been working hard with his doctor to get these under better control. He did undergo a left knee replacement 2-1/2 months ago and has done well from this. His wounds have been a little slow to heal, but looks to be healing. There are no signs of infection. He would now like to proceed with right knee replacement. He has trouble even walking currently on his right leg. He has got a varus deformity. He does have a history of a DVT after his heart surgery in 2016, but no known clotting disorder. PAST MEDICAL HISTORY: Significant for: 1. Coronary artery disease, status post 4-vessel bypass done at [facility] on 12/23/2015. 2. Elevated cholesterol. 3. Poorly controlled type 2 diabetes. 4. Hypertension. PAST SURGICAL HISTORY: Includes: 1. Four-vessel CABG done on 12/23/2015 at [facility]. 2. Left knee replacement done on 04/06/2017. ALLERGIES: None. CURRENT MEDICINES: 1. Metformin 1000 mg twice a day. 2. Gabapentin 400 mg 3 times a day. 3. Atorvastatin 40 mg. 4. Metoprolol 25 mg a day. 5. Famotidine 20 mg a day. 6. Glimepiride once a day. 7. Insulin. 8. Low-dose aspirin twice a day. 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 He is . FAMILY HISTORY: Negative for heart disease, diabetes, or blood clots. REVIEW OF SYSTEMS: Significant for fairly poorly controlled diabetes. Denies any current chest pain or shortness of breath. He does have a history of DVT in the past in his right leg, but not on any blood thinner. No known clotting disorder. PHYSICAL EXAMINATION: GENERAL: Reveals a pleasant elderly male. He looks in reasonably good health. HEENT: Benign. NECK: Supple, no lymphadenopathy. LUNGS: Clear to auscultation. HEART: Regular rate and rhythm. ABDOMEN: Soft, nontender, nondistended. EXTREMITIES: Grossly neurovascularly intact except as follows. Examination of the right knee reveals a fixed varus deformity to his knee. Range of motion is about 15 degrees short of full extension to about 90 degrees of flexion. He is very stiff. He has got a fixed varus deformity. No pain with hip motion. Examination of the left knee reveals a healing total knee incision. He still does have a little bit of a dry scab distally. Range of motion is about 5 degrees short of full extension to about 120 degrees of flexion. He can do a straight leg raise with a slight lag. X-RAYS: X-rays of the right knee revealed advanced right knee DJD. He has got complete loss of his medial joint space. He has got tibial femoral subluxation. He has got some bony destruction of the medial tibial plateau. 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 He is happy with his left knee and would like to have his right knee replaced. PLAN: We are going to take him to the operating room and do a right total knee replacement. The risks and benefits of this procedure were explained to the patient including but not limited to DVT, PE, , infection, neurological injury, vascular injury, bleeding problems, pain, limited range of motion, stiffness, failure to relieve his symptoms, incomplete relief of symptoms, need for further surgery in the future, fracture, leg length inequality, nerve palsy, etc. The patient understands and desires to proceed. Informed consent was obtained. We did do preoperative labs. He is still slightly anemic from his previous surgery. He has a slightly elevated sed rate and C-reactive protein, like from his previous surgery. There are no active signs of infection. We will likely use Xarelto postoperatively due to his history of DVT in the past. He will plan to be discharged to home likely with some home health. ALMAS
[~2017-06-25] VITALS: Ht 167.6 cm; Wt 72.7 kg
[2017-06-25] VITALS (8 sets, daily range): BP systolic 118–166; BP diastolic 65–99; PULSE 69–84; TEMP 36.3–36.9; O2SAT 95–100; Ht 167.6 cm; Wt 72.7 kg
[~2017-06-25 05:57] MED LIST changes: -ACET-24 PO; -FRRG PO; -LISI-729 PO; -METO25TA56 PO; -RXC5 PO; -XRL10 PO
[2017-06-25] MEDS ORDERED: LACTATED RINGER'S 1000ML 1,000 ML IV SCH (06:00)
[2017-06-25] MEDS ORDERED: BUPIVACAINE LIPOSOME 266 MG, BUPIVACAINE/EPINEPHRINE INJ 50 ML, SODIUM CHLORIDE 0.9% PF... INFIL SCH ×3 (06:00)
[2017-06-25] MEDS ORDERED: FAMOTIDINE 20 MG TAB PO SCH (06:00)
[2017-06-25] MEDS ORDERED: CEFAZOLIN 2000MG IV PUSH 15 ML IV SCH (06:00)
[2017-06-25] MEDS ORDERED: METOCLOPRAMIDE HCL 10 MG TAB PO SCH (06:00)
[2017-06-25] MEDS ORDERED: ACETAMINOPHEN 500 MG TAB PO SCH (06:00)
[2017-06-25] MEDS ORDERED: LACTATED RINGER'S 1000ML IV SCH (06:00)
[2017-06-25] MEDS ORDERED: TRANEXAMIC ACID INJ 1,000 MG x 1 Bag Preop IV SCH ×2 (06:00)
[2017-06-25] MEDS ORDERED: GABAPENTIN 300 MG CAP PO SCH (06:00)
[2017-06-25] MEDS ORDERED: BUPIVACAINE 0.25% 30 ML VIAL ONE ×2 (06:31→08:50)
[2017-06-25] MEDS ORDERED: BUPIVACAINE 0.5 % 5 MG/1 ML PF 10ML VIAL ONE (06:31)
[2017-06-25] MEDS ORDERED: MIDAZOLAM HCL 1 MG/ML 2ML VIAL ONE (06:36)
[2017-06-25] MEDS ORDERED: ONDANSETRON INJ 2 MG/ML 2 ML VIAL ONE (08:28)
[2017-06-25] MEDS ORDERED: PROPOFOL IV EMULSION 10 MG/ML 20 ML VIAL IV ONE (08:28)
[2017-06-25] MEDS ORDERED: LIDOCAINE HCL 2% 2 ML VIAL (20MG/ML) ONE (08:28)
[2017-06-25] MEDS ORDERED: BUPIVACAINE LIPOSOME 1/3% 266 MG/20 ML VIAL INFIL ONE (08:50)
[2017-06-25] MEDS ORDERED: BACITRACIN 50000 UNIT VIAL ONE (08:50)
[2017-06-25] MEDS ORDERED: SODIUM CHLORIDE 0.9% PF 50 ML VIAL ONE (08:50)
[2017-06-25] MEDS ORDERED: EpINEphrine INJ 1MG/ML AMP 1 MG/ML AMP ONE (08:51)
[2017-06-25] MEDS ORDERED: ATROPINE SULFATE 0.1 MG/ML 5ML SYR IV PRN (09:15)
[2017-06-25] MEDS ORDERED: PHENYLEPHRINE 100MCG/ML 5ML SYR IV PRN (09:15)
[2017-06-25] MEDS ORDERED: HYDROmorphone INJ 2 MG/ML SYR/VIAL IV PRN (09:15)
[2017-06-25] MEDS ORDERED: EpHEDrine SULFATE INJ 50 MG/ML AMP IV PRN (09:15)
[2017-06-25] MEDS ORDERED: ONDANSETRON INJ 2 MG/ML 2 ML VIAL IV PRN ×2 (09:15→11:00)
[2017-06-25] MEDS ORDERED: KETOROLAC TROMETHAMINE 15 MG/ML VIAL IV. PRN (09:15)
[2017-06-25] MEDS ORDERED: VANCOMYCIN HCL 1000MG/20ML VIAL ONE (09:23)
[2017-06-25] MEDS ORDERED: PHENYLEPHRINE 100MCG/ML 5ML SYR ONE (10:43)
--- NOTE | 2017-06-25 10:59 | [facility] Post Operative Brief Note ---
Immediate Operative Summary Operative Date Jun 25, 2017. Pre-Operative Diagnosis Advanced Right Knee Degenerative Joint Disease Post-Operative Diagnosis Advanced Right Knee Degenerative Joint Disease Procedure(s) Performed Right Total Knee Arthroplasty Surgeon Dr. Tay Nuclear Process Engineer Surgeon(s) ADALBERTO Aceves Estimated Blood Loss 50 ml Findings Consistent with Post-Op Diagnosis Fluids (cc crystalloids) 1300 cc Specimens A. Right Knee Bone and Tissue Drains None Anesthesia Type MAC Spinal Regional Complication(s) none Disposition Accompanied Pt To Recover: no Disposition: Recovery Room / PACU
[2017-06-25] MEDS ORDERED: BISACODYL 10 MG SUPP PR PRN (11:00)
[2017-06-25] MEDS ORDERED: TRAMADOL HCL 50 MG TAB PO PRN (11:00)
[2017-06-25] MEDS ORDERED: TAMSULOSIN HCL 0.4 MG CAP PO PRN (11:00)
[2017-06-25] MEDS ORDERED: SILVER SULFADIAZINE 1% CR 50 GM JAR EXT PRN (11:00)
[2017-06-25] MEDS ORDERED: HYDROmorphone INJ 0.5 MG/0.5 ML SYR IV PRN (11:00)
[2017-06-25] MEDS ORDERED: CEFAZOLIN IV 1,000 MG in DEXTROSE 5% 50ML 50 ML IV SCH (11:00)
[2017-06-25] MEDS ORDERED: ZOLPIDEM TARTRATE 5 MG TAB PO PRN (11:00)
[2017-06-25] MEDS ORDERED: ALUMINUM/MAGNESIUM/SIMETH (MAALOX MAX) 30 ML UDC PO PRN (11:00)
[2017-06-25] MEDS ORDERED: GLUCOSE 40% GEL 15 GM TUBE PO PRN (11:00)
[2017-06-25] MEDS ORDERED: GLUCAGON FOR INJ 1 MG VIAL SQ PRN (11:00)
[2017-06-25] MEDS ORDERED: GLUCOSE 10 TABS/TUBE PO PRN (11:00)
[2017-06-25] MEDS ORDERED: DEXTROSE 50% 50 ML SYR IV PRN (11:00)
[2017-06-25] MEDS ORDERED: METOCLOPRAMIDE HCL INJ 5 MG/ML 2 ML VIAL IV PRN (11:00)
[2017-06-25] MEDS ORDERED: MAGNESIUM HYDROXIDE SUSP 30 ML UDC PO PRN (11:00)
[2017-06-25] MEDS ORDERED: VENLAFAXINE HCL XR 37.5 MG CAPXR PO PRN (11:00)
--- NOTE | 2017-06-25 11:31 | DIAGNOSTIC IMAGING REPORT ---
Right knee 2 views CLINICAL HISTORY: Degenerative arthritis. Postop study COMPARISON: None. DISCUSSION: There are postsurgical changes of a total right knee arthroplasty and patellar resurfacing. The femoral and tibial components appear well seated. Overlying skin cortney are evident. There is air within soft tissues consistent with recent surgery. IMPRESSION: Postsurgical changes of a total right knee arthroplasty. Electronically signed by: Ronaldo Bear M.D. 06/25/2017 11:30 AM Dictated Date/Time: 06/25/2017 11:29 AM
--- NOTE | 2017-06-25 11:57 | Anesthesiology Progress Note ---
Anesthesia Post Op Note Date & Time Jun 25, 2017 at 11:57 Vital Signs Pain Intensity: 0 Vital Signs Past 12 Hours Date Time Temp Pulse Resp B/P (MAP) Pulse Ox O2 Delivery O2 Flow Rate FiO2 06/25/17 11:45 36.8 73 16 110/68 94 Nasal Cannula 2 06/25/17 11:35 76 12 103/67 95 Nasal Cannula 2 06/25/17 11:25 72 14 101/65 97 Nasal Cannula 2 06/25/17 11:15 69 11 107/61 96 Nasal Cannula 2 06/25/17 11:05 36.2 69 16 93/60 98 Nasal Cannula 2 06/25/17 07:03 36.7 84 20 166/99 96 Room Air Notes Mental Status: alert / awake / arousable, participated in evaluation Pt Amnestic to Procedure: Yes Nausea / Vomiting: adequately controlled Pain: adequately controlled Airway Patency, RR, SpO2: stable & adequate BP & HR: stable & adequate Hydration State: stable & adequate Anesthetic Complications: no major complications apparent
[2017-06-25] MEDS: SODIUM CHLORIDE 0.9% 1000ML 1,000 ML IV SCH ×2 (12:23→22:34)
--- NOTE | 2017-06-25 12:34 | OPERATIVE REPORT ---
DATE OF OPERATION: 06/25/2017 SURGEON: Dr. Forrest Tay. ACCOUNTANT AUDITOR: ADALBERTO Aceves PREOPERATIVE DIAGNOSIS: Right knee degenerative joint disease. POSTOPERATIVE DIAGNOSIS: Same. PROCEDURE PERFORMED: Right cemented posterior stabilized total knee arthroplasty. COMPLICATIONS: None. ESTIMATED BLOOD LOSS: 50 mL. FLUID REPLACEMENT: 1300 mL crystalloid fluid replacement. ANESTHESIA: Spinal with adductor canal block. DRAINS: None. SPECIMENS: Right knee sent for pathology. 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 He had failed extensive conservative treatment, was markedly debilitated by this disease and had had trouble walking even with assistance devices. He underwent a left knee replacement 3 months ago, has done well from this. He elected to proceed with a right total knee arthroplasty. OPERATIVE FINDINGS: Operative findings revealed advanced right knee DJD. He had about a 15 degree flexion contracture and can only flex to 90 degrees. He had a marked varus deformity to his knee. He had diffuse grade 4 changes in all 3 compartments. He had osteophytes in all 3 compartments. OPERATIVE IMPLANTS: Operative implants consisted of: 1. Biomet Vanguard size 67.5 right posterior stabilized femoral component. 2. Biomet size 71 tibial tray. 3. A 14 mm posterior stabilized polyethylene insert. 4. A 31 x 8 all poly patella. OPERATIVE PROCEDURE: The patient taken to the operating, identified and placed on the operating table in supine position. All contact areas were appropriately padded. IV antibiotics were provided by anesthesia team. A spinal anesthetic and adductor canal block were provided in the holding area. Roque catheter was placed in sterile fashion. Right thigh tourniquet was then placed in the right lower extremity was then prepped and draped in usual sterile fashion. The right leg was elevated and exsanguinated, Esmarch tourniquet placed at 300 mmHg. An anterior approach of the right knee was then performed through a longitudinal incision centered over the patella. Sharp dissection got through the subcutaneous tissue down the level of the extensor mechanism. A medial parapatellar arthrotomy incision was made. Some subperiosteal dissection was carried out medially. The fat pad resected from beneath the patellar tendon. I did an extensive posterior medial dissection in order to release his fixed varus deformity and flexion contracture. The fat pad resected from beneath the patellar tendon. Lateral patellofemoral ligament was released. Patella was subluxated laterally and the knee was flexed. The osteophytes were taken off the distal femur. The ACL and PCL were released from the distal femur and the tibia subluxated anteriorly. The external tibial alignment jig was then placed in the anterior face of the tibia and adjusted 16 mm medially. Proximal tibial cut was made to remove about a millimeter or 2 of from the most deficient aspect of the medial tibial plateau. Some osteophytes were taken off medial and posteromedially. Tibia size to a size 71. Attention was then drawn to the femur. The distal femur was entered with a sharp drill bit. Intramedullary canal was suctioned. A right 6 degree valgus cutting guide was placed. Distal femoral cutting block was pinned in place. Distal femoral cut was made to take an additional 3 mm of bone off the distal femur. The femur was then sized to a size 67.5. We did downsize this slightly. The AP cutting block was pinned parallel to the epicondylar axis, which was 3 degrees of external rotation. The anterior cut, anterior chamfer, posterior cut, posterior chamfer cuts were made. Box cutting guide was placed and adjusted slight lateral and the box cut was made. The knee was flexed. The remnants of the medial and lateral menisci were excised. The osteophytes were taken off the posterior aspect of the femur. Trial femoral component was placed. Tibial tray was pinned in maximum external rotation and the drill and stem punch were used to create defect in proximal tibia for the tibial tray. The knee was then trialed and the 14 mm insert fit most appropriately. There was still just a little bit of laxity on varus side, which we accepted. Attention was then drawn to the patella. The patella was cleaned of all soft tissues. Patella thickness measured 19 mm in thickness and was cut down to 13. It was sized to a size 31 patella. Locals were drilled for a 31 patella. Lateral osteophyte was removed. Patella button was placed. Knee was taken through range of motion, patella tracked nicely with no thumbs test. Attention was then drawn toward placement of the permanent components. All trial components were removed. Bone plug was placed and distal femur to limit blood loss. A double batch of Palacos G cement was mixed. I did add an additional gram of vancomycin in the cement due to his diabetes, which is quite poorly controlled. A Biomet size 67.5 right posterior stabilized femoral component, size 71 tibial tray, a 14 mm posterior stabilized polyethylene insert, and a 31 x 8 all poly patella then cemented in place. Knee was brought into full extension until cement hardened. A final cement check was then performed. Pericapsular tissues were injected with a total of 100 mL of a combination of 20 mL of Exparel, 30 mL of normal saline, 50 mL of 0.25% Marcaine with epinephrine. The patient did receive 1 gram of tranexamic acid. The tourniquet was then let down for final tourniquet time of 67 minutes. Hemostasis was assured using electrocautery. The wound was once again irrigated. The extensor muscles and closed with combination of #1 PDS suture and #1 Vicryl suture in a [id number] fashion. Extensor mechanism was checked and found to be intact. The subcutaneous tissues were then closed with #2 Dexon suture in buried interrupted fashion. Skin was closed skin cortney. Leg was then cleaned and dried and a sterile dressing of Xeroform, 4 x 4, sterile cast padding and Km bandage were applied. The patient then transferred to the recovery room in stable condition. The patient tolerated with no complications. All needle and sponge counts were correct at the end of the operation. I attest to the content of the Intraoperative Record and any orders documented therein. Any exception s are noted below.
--- NOTE | 2017-06-25 13:01 | Medical Consult ---
Consultation Date of Consultation: Jun 25, 2017. Attending Physician: Forrest Tay M.D. Reason for Consultation: post-op management of T2DM, CAD, etc. History of Present Illness 72yo male with CAD s/p CABG, hypothyroidism, HTN, and prior RLE DVT after his CABG who presented today for elective right TKR by Dr. Forrest Tay. I saw the patient post-op on the orthopedic floor where he was resting comfortably. He denied any dyspnea, orthopnea, palpitations, chest pain, abdominal pain, or any other symptoms. He reports his fingerstick blood sugars at home have been nearly all <150; he does have an occasional low. Past Medical/Surgical History PMH: 1. CAD s/p 4-vessel CABG [facility] 2015 2. T2DM 3. HTN 4. diabetic neuropathy 5. hyperlipidemia 6. hypothyroidism 7. RLE DVT - 2015, following CABG PSH: 1. CABG - 2016 - 4-vessel 2. left TKR - 2016 3. appendectomy 4. 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) Allergies Coded Allergies: Oxycodone (Verified Adverse Reaction, Unknown, NAUSEA, 06/25/17) Home Medications Reported Home Medications Medications Dose Route/Sig Max Daily Dose Days Date Category Venlafaxine Extended Rel (Venlafaxine Hcl) 37.5 Mg Cap 37.5 Mg PO PRN 06/11/17 Reported [Iron] 65 Mg PO QPM 06/11/17 Reported Levothyroxine Sodium 25 Mcg Tab 1 Tab PO QAM 90 06/11/17 Reported Tylenol (Acetaminophen) 500 Mg Tab 1,000 Mg PO PRN 06/11/17 Reported Vitamin C (Ascorbic Acid) 250 Mg Tab 250 Mg PO QPM 03/08/17 Reported Folic Acid 800 Mcg Tab 800 Mcg PO QPM 03/08/17 Reported Lipitor (Atorvastatin) 40 Mg Tab 40 Mg PO QPM 03/08/17 Reported Toujeo Solostar (Insulin Glargine) 300 Unit/Ml Inj 22 Units INJ QPM 03/08/17 Reported Pepcid (Famotidine) 20 Mg Tab 20 Mg PO BID 03/08/17 Reported Neurontin (Gabapentin) 300 Mg Cap 400 Mg PO TID 03/08/17 Reported Glucophage (Metformin Hcl) 1,000 Mg Tab 1,000 Mg PO BID 03/08/17 Reported Current Inpatient Medications Current Inpatient Medications Medications (Trade) Dose Ordered Sig/Nora Route Start Time Stop Time Status Last Admin Dose Admin Cefazolin Sodium 15 ml @ 3.75 mls/ min PREOP IV 06/25/17 06:00 06/25/17 18:00 06/25/17 09:11 3.75 MLS/MIN Acetaminophen (Tylenol Tab) 1,000 mg PREOP PO 06/25/17 06:00 06/25/17 18:00 06/25/17 07:26 1,000 MG Bupivacaine Liposome 266 mg/ Bupivacaine HCl/ Epinephrine Bitart 50 ml/ Sodium Chloride 30 ml/Syringe 100 ml @ 0 mls/hr 06 INFIL 06/25/17 06:00 06/25/17 18:00 06/25/17 09:49 100 MLS/HR Famotidine (Pepcid Tab) 20 mg PREOP PO 06/25/17 06:00 06/25/17 18:00 06/25/17 07:26 20 MG Gabapentin (Neurontin Cap) 300 mg PREOP PO 06/25/17 06:00 06/25/17 18:00 06/25/17 07:26 300 MG Metoclopramide HCl (Reglan Tab) 10 mg PREOP PO 06/25/17 06:00 06/25/17 18:00 06/25/17 07:26 10 MG Tranexamic Acid 1000 mg/Sodium Chloride 110 ml @ 660 mls/min PREOP IV 06/25/17 06:00 06/25/17 15:00 Ondansetron HCl (Zofran Inj) 4 mg ONE PRN IV 06/25/17 09:15 06/25/17 14:15 Atropine Sulfate (Atropine Sulfate 0.1mg/ml Inj) 0.5 mg Q1M PRN IV 06/25/17 09:15 06/25/17 14:15 Ephedrine Sulfate (EpHEDrine SULFATE INJ) 5 mg Q5M PRN IV 06/25/17 09:15 06/25/17 14:15 Ketorolac Tromethamine (Toradol Inj) 15 mg ONE PRN IV. 06/25/17 09:15 06/25/17 14:15 Hydromorphone HCl (Dilaudid Inj) 0.25 mg Q5M PRN IV 06/25/17 09:15 06/25/17 14:15 Phenylephrine HCl (Adiel-Synephrine 500MCG/5ML Syr) 100 mcg Q5M PRN IV 06/25/17 09:15 06/25/17 14:15 Rivaroxaban (Xarelto Tab) 10 mg DAILY PO 06/26/17 12:00 07/26/17 11:59 Sodium Chloride 1,000 ml @ 100 mls/hr Q10H IV 06/25/17 12:30 06/26/17 10:59 06/25/17 12:23 100 MLS/HR Ketorolac Tromethamine (Toradol Inj) 15 mg Q6 IV. 06/25/17 13:00 06/26/17 11:59 Acetaminophen (Tylenol Tab) 1,000 mg Q8 PO 06/25/17 14:00 07/25/17 13:59 Magnesium Hydroxide (Milk Of Magnesia Susp) 30 ml Q6H PRN PO 06/25/17 11:00 07/25/17 10:59 Bisacodyl (Dulcolax Supp) 10 mg DAILY PRN VA 06/25/17 11:00 07/25/17 10:59 Senna (Senokot Tab) 17.2 mg HS PO 06/25/17 21:00 07/25/17 20:59 Docusate Sodium (coLACE CAP) 100 mg BID PO 06/25/17 21:00 07/25/17 20:59 Al Hydrox/Mg Hydrox/Simethicone (Maalox Max Susp) 15 ml Q4H PRN PO 06/25/17 11:00 07/25/17 10:59 Zolpidem Tartrate (Ambien Tab) 5 mg HSZ PRN PO 06/25/17 11:00 07/25/17 10:59 Multivitamins (Multivitamin Tab) 1 tab QAM PO 06/26/17 09:00 07/26/17 08:59 Ondansetron HCl (Zofran Inj) 4 mg Q6H PRN IV 06/25/17 11:00 07/25/17 10:59 Metoclopramide HCl (Reglan Inj) 10 mg Q6H PRN IV 06/25/17 11:00 07/25/17 10:59 Ferrous Gluconate (Ferrous Gluconate Tab) 324 mg TIDM PO 06/25/17 12:30 07/25/17 12:29 Pantoprazole Sodium (Protonix Tab) 40 mg QAM PO 06/26/17 09:00 06/30/17 08:59 Silver Sulfadiazine (Silvadene 1% Crm 50GM Jar) 1 appln BID PRN EXT 06/25/17 11:00 07/25/17 10:59 Tamsulosin HCl (Flomax Cap) 0.4 mg QAM PRN PO 06/25/17 11:00 07/25/17 10:59 Tramadol HCl (Ultram Tab) 1 tablet for pain rating... Q4H PRN PO 06/25/17 11:00 07/25/17 10:59 Tranexamic Acid 1000 mg/Sodium Chloride 110 ml @ 660 mls/hr Q6H IV 06/25/17 16:00 06/25/17 16:09 Atorvastatin Calcium (Lipitor Tab) 40 mg QPM PO 06/25/17 21:00 07/25/17 20:59 Famotidine (Pepcid Tab) 20 mg BID PO 06/25/17 21:00 07/25/17 20:59 Gabapentin (Neurontin Cap) 400 mg TID PO 06/25/17 14:00 07/25/17 13:59 Levothyroxine Sodium (Synthroid Tab) 25 mcg DAILYBB PO 06/26/17 06:00 07/26/17 05:59 Venlafaxine HCl (effeXOR EXTENDED REL CAP) 37.5 mg DAILY PRN PO 06/25/17 11:00 07/25/17 10:59 Ascorbic Acid (Vitamin C Tab) 250 mg QPM PO 06/25/17 21:00 07/25/17 20:59 Folic Acid (Folvite Tab) 800 mcg QPM PO 06/25/17 21:00 07/25/17 20:59 Hydromorphone HCl (Dilaudid Inj) 0.5 mg Q1H PRN IV 06/25/17 11:00 07/09/17 10:59 Insulin Human Regular (novoLIN-R) SLIDING SCALE ACHS SC 06/25/17 17:15 07/25/17 17:14 Glucose (Glucose 40% Gel) 15-30 GRAMS 15 GRAMS... UD PRN PO 06/25/17 11:00 07/25/17 10:59 Glucose (Glucose Chew Tab) 4-8 Tablets 4 Tabl... UD PRN PO 06/25/17 11:00 07/25/17 10:59 Dextrose (Dextrose 50% 50ML Syringe) 25-50ML OF 50% DW IV FOR... UD PRN IV 06/25/17 11:00 07/25/17 10:59 Glucagon (Glucagon Inj) 1 mg UD PRN SQ 06/25/17 11:00 07/25/17 10:59 Cefazolin Sodium 1000 mg/Syringe 7.5 ml @ 2.5 mls/min Q8H IV 06/25/17 18:00 06/26/17 02:02 Review of Systems Constitutional: No fever, No chills, No sweats, No weight loss, No weakness, No fatigue Eyes: No worsening of vision ENT: No hearing loss, No nasal symptoms, No sore throat, No trouble swallowing Respiratory: No cough, No sputum, No wheezing, No shortness of breath, No dyspnea on exertion Cardiovascular: No chest pain, No orthopnea, No PND, No edema Abdomen: No pain, No nausea, No vomiting, No diarrhea, No constipation, No GI bleeding Musculoskeletal: + joint pain (right knee) Genitourinary - Male: No dysuria, No urinary hesitancy, No urinary retention Neurologic: + numbness/tingling (both hands worse on right) Psychiatric: No depression symptoms, No anxiety Endocrine: No fatigue, No excessive thirst, No excessive urination Hematologic / Lymphatic: No abnormal bleeding/bruising Integumentary: No rash Physical Exam Date Time Temp Pulse Resp B/P (MAP) Pulse Ox O2 Delivery O2 Flow Rate FiO2 06/25/17 12:40 36.3 70 16 126/82 (97) 98 Nasal Cannula 2.0 06/25/17 12:10 98 Nasal Cannula 2.0 06/25/17 12:10 98 Nasal Cannula 2.0 06/25/17 12:10 36.8 77 16 120/73 (89) 98 Nasal Cannula 2.0 06/25/17 11:55 70 13 116/74 95 Nasal Cannula 2 06/25/17 11:45 36.8 73 16 110/68 94 Nasal Cannula 2 06/25/17 11:35 76 12 103/67 95 Nasal Cannula 2 06/25/17 11:25 72 14 101/65 97 Nasal Cannula 2 06/25/17 11:15 69 11 107/61 96 Nasal Cannula 2 06/25/17 11:05 36.2 69 16 93/60 98 Nasal Cannula 2 06/25/17 07:03 36.7 84 20 166/99 96 Room Air General Appearance: WD/WN, no apparent distress Head: normocephalic, atraumatic Eyes: PERRL, sclerae normal ENT: pharynx normal Neck: supple, no adenopathy, thyroid normal, no JVD, no carotid bruits Respiratory/Chest: lungs clear, no respiratory distress, no accessory muscle use Cardiovascular: regular rate, rhythm, no gallop, + systolic murmur (2/6 KRISTIE RUSB/LLSB) Abdomen/GI: normal bowel sounds, non tender, soft, no organomegaly Back: normal inspection Extremities/Musculoskelatal: + pedal edema (right foot - <1+; none on left), + pertinent finding (large dressing in place right knee) Neurologic/Psych: no motor/sensory deficits (strength upper extremities 5/5), alert, normal reflexes (2+ b/l upper extremities ), oriented x 3, + pertinent finding (muscle wasting intrinsic muscles right hand) Skin: no rash, + pertinent finding (large dressing in place with ice pack, right knee ) Laboratory Results Last 24 Hours Test 06/25/17 06:36 06/25/17 11:10 Bedside Glucose 153 mg/dl 127 mg/dl Assessment & Plan 72yo male with CAD s/p CABG 2016, HTN, hyperlipidemia, T2DM, and hypothyroidism who is s/p right TKR by Dr. Forrest Tay today. He also has a h/o provoked RLE DVT in the setting of his CABG in 2016. 1. T2DM - continue his long-acting insulin and use novolog for meal coverage & bedtime. Will d/c the novolin R. Since he has been having lows at home will lower the lantus from 22 units to 15 units. Noted that he did NOT receive perioperative steroids today. Hold metformin. 2. CAD - no ischemic symptoms at this time. Cont his lipitor. I am uncertain why he does not take aspirin or beta unique. No evidence of CHF at this time. 3. hypothyroidism - continue synthroid per home dose. No TSH in our system. Will check one in the AM. 4. HTN - controlled at this time. 5. hyperlipidemia - continue his statin agent. 6. h/o provoked DVT, RLE, following his CABG - Dr. Tay is going to use xarelto for DVT prevention. I think that is a fine choice. 7. 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 f/u with PCP as outpatient. cannot r/o diabetic neuropathy causing his symptoms. continue his gabapentin. check CBC, BMP in am. Thank you for the consult. Will follow with you.
[2017-06-25] MEDS: FERROUS GLUCONATE 324 MG TAB PO SCH ×2 (13:40→17:52)
[2017-06-25] MEDS: GABAPENTIN 400 MG CAP PO SCH ×2 (13:40→19:33)
[2017-06-25] MEDS: KETOROLAC TROMETHAMINE 15 MG/ML VIAL IV. SCH ×3 (13:41→23:35)
[2017-06-25] MEDS: ACETAMINOPHEN 500 MG TAB PO SCH ×2 (13:41→21:30)
[2017-06-25] MEDS ORDERED: TRANEXAMIC ACID INJ 1,000 MG in SODIUM CHLORIDE 0.9% 100ML 100 ML IV SCH (16:00)
[2017-06-25] MEDS ORDERED: ULT50X PO (17:07)
[2017-06-25] MEDS ORDERED: XRL10 PO (17:07)
[2017-06-25] MEDS ORDERED: ACET-24 PO (17:07)
[2017-06-25] MEDS ORDERED: FRRG PO (17:07)
[2017-06-25] MEDS ORDERED: INSULIN HUMAN REGULAR SC SCH (17:15)
--- NOTE | 2017-06-25 17:17 | Discharge Instructions ---
Discharge Instructions Date of Service Jun 25, 2017. Admission Reason for Admission: Right Knee Degenerative Joint Disease, Knee Pain Discharge Discharge Diagnosis / Problem: Right Knee Replacement Discharge Goals Goal(s): Decrease discomfort, Improve function, Increase independence, Improve disease control, Therapeutic intervention Activity Recommendations Activity Limitations: per Instructions/Follow-up section Weightbearing Status: Right weightbearing . Instructions / Follow-Up Instructions / Follow-Up ACTIVITY RECOMMENDATIONS: Physical Therapy: * You will go to physical therapy three times each week for four to six weeks after your surgery in order to regain your knee range of motion and to retrain your knee to work properly. * It is just as important to make sure you are getting your knee perfectly straight as it is to regain your knee bend. * Taking a pain pill an hour before therapy can help you have a more productive and comfortable therapy session. Home Exercise: * You were shown a series of exercises (heel props, heel slides, etc.) in the hospital. Do these exercises three to four times each day including the exercises you were shown in physical therapy. Walking: * Get up and walk several times each day. For the first four weeks, try not to stand or walk for more than one hour at a time. If you do stand or walk for more than one hour, you will not hurt anything, but your knee and leg will likely swell. * As you feel comfortable, you may change from the walker or crutches to a cane and then to independent walking. MEDICATIONS: New Medicine: * You will likely be taking one or more of these medications: 1. Tramado - A quick and shorter-acting pain medication. Take one to two tablets every four to six hours to lessen your pain. 2. Iron Sulfate - Take two times each day for the month after surgery to help you replace the blood lost during surgery. 3. Xarelto - Thins your blood to lessen the chance of forming a blood clot. * The most common side effects of pain medicine and iron are nausea and constipation. If nausea or constipation is too much of a problem or if you have any questions about your new medicines or doses, call [facility] at . We will try to help you manage these issues. VERY IMPORTANT TO READ AND REVIEW" Pain: * The immediate post-operative period after knee replacement surgery is often quite painful. * You are given a prescription for pain medicine. You should take it, as directed, when you need it, especially before physical therapy and before going to bed. Pain that interferes with sleep is very common and can last several months. * You will likely need pain medicine for the first four to six weeks. It will not stop all of the pain. The pain will lessen and as you feel better, you may change to milder pain medicine such as Tylenol. * The most common side effects of pain medicine are nausea and constipation, so don't take more than you need. SPECIAL CARE INSTRUCTIONS: TEDs/Elastic Stockings: * The white elastic stockings help limit swelling and prevent blood clots from forming in your legs. The more you wear them, the more they work. * Wear them for six weeks after knee replacement surgery and four weeks after partial knee replacement. Prevention of Infection: * Take antibiotics one hour before any dental cleaning, dental work, urological procedure, gastrointestinal procedure or any invasive surgery in order to prevent your new joint from getting infected. * You may get the antibiotics from the doctor performing the procedure or you may call our office at before and we will call in a prescription to the pharmacy of your choice. Things to Watch For: * Drainage from the incision site that occurs more than one week after your surgery. * Severely increased knee/leg pain or swelling. * Increased redness at the incision site. * Fever above 102 degrees Fahrenheit. * Unusual chest pain or shortness of breath. * Unusual pain or burning with urination. Call [facility] at with any of the above problems or if you have any questions about your medicines or recovery. FOLLOW UP VISIT: Make an appointment to see your doctor for approximately two weeks after surgery for a progress check and staple removal by calling the office at . Current Hospital Diet Patient's current hospital diet: Diabetes Type 2 Diet Discharge Diet Recommended Diet: Diabetes Type 2 Diet Procedures Procedures Performed: Right Total Knee Arthroplasty Pending Studies Studies pending at discharge: no Laboratory Results Hemoglobin A1c Test 06/07/17 10:57 Range/Units Estimated Average Glucose 160 mg/dl Hemoglobin A1c 7.2 H 4.5-5.6 % Medical Emergencies . Who to Call and When: Medical Emergencies: If at any time you feel your situation is an emergency, please call 707 immediately. . Non-Emergent Contact Non-Emergency issues call your: Surgeon . "Provider Documentation" section prepared by Forrest Tay. .
--- NOTE | 2017-06-25 17:24 | PROGRESS NOTE ---
DATE: 06/25/2017 SUBJECTIVE: A 72-year-old gentleman with poorly controlled diabetic postop from a right knee replacement. He is 3 months out from his left knee. He is doing well. Not having any pain yet. No chest pain or shortness of breath. Not feeling dizzy or lightheaded. OBJECTIVE: VITAL SIGNS: Temperature 36.5. Vital signs stable. GENERAL: Reveals a healthy pleasant elderly male. He is sitting up in bed and looks comfortable. LUNGS: Clear to auscultation. HEART: Regular rate and rhythm. ABDOMEN: Soft, nontender, nondistended. EXTREMITIES: Grossly neurovascularly intact except as follows: Examination of the right leg reveals the leg to be well aligned. Dressing is clean, dry, and intact. He can dorsiflex and plantarflex his foot appropriately. He is neurologically intact. Brisk refill. X-RAYS: X-ray of the right knee from recovery room were reviewed. It shows a right cemented posterior stabilized total knee arthroplasty. Components looked to be in good position. No signs of problems. ASSESSMENT: A 72-year-old male with history of DVT and poorly controlled diabetic with a history of a deep venous thrombosis in the past postop from a right knee replacement, doing well. His pain is controlled. He is neurologically intact. He go through his surgery without a lot of pain. Will need for strong pain medicines. PLAN: 1. DVT prophylaxis including thigh-high TEDs, SCDs, and will start him on Xarelto at prophylactic dose of 10 mg 24 hours postop. We will treat him with this for 30 days postoperatively. This is due to his history of DVT in the past. 2. PT/OT. Weightbear as tolerated. Right total knee protocol. 3. Pain control. Will use around the clock Tylenol and some low dose Toradol and use tramadol upon discharge. 4. IV antibiotics x24 hours. 5. Disposition: Plan to discharge to home and he is going to have the [facility] home [facility] people to help with therapy for the first 2 weeks. ALMAS
[2017-06-25] MEDS: CEFAZOLIN IV 1,000 MG in SYRINGE 0 ML IV SCH (17:52)
[2017-06-25] MEDS: INSULIN ASPART 100 UNITS/ML 3 ML PEN SC SCH ×2 (17:57→21:27)
[2017-06-25] MEDS: ASCORBIC ACID 500 MG TAB PO SCH (19:32)
[2017-06-25] MEDS: FAMOTIDINE 20 MG TAB PO SCH (19:32)
[2017-06-25] MEDS: DOCUSATE SODIUM 100 MG CAP PO SCH (19:33)
[2017-06-25] MEDS: ATORVASTATIN 40 MG TAB PO SCH (19:33)
[2017-06-25] MEDS: FoLIC ACID TAB 400 MCG TAB PO SCH (19:34)
[2017-06-25] MEDS: SENNA 8.6 MG TAB PO SCH (19:35)
[2017-06-25] MEDS ORDERED: NON-FORMULARY MEDICATION ([Iron] 65 MG) PO SCH (21:00)
[2017-06-25] MEDS: INSULIN GLARGINE SOLOSTAR 100 UNITS/ML 3 ML PEN SC SCH (21:26)
[2017-06-26] MEDS: CEFAZOLIN IV 1,000 MG in SYRINGE 0 ML IV SCH (02:28)
[2017-06-26 04:20] VITALS: BP 135/71; PULSE 86; TEMP 36.6; O2SAT 96
[2017-06-26 06:05] LABS: HEMATOCRIT 30.9 % (42-52); HEMOGLOBIN 10.2 g/dL (14.0-18.0); MEAN CELL VOLUME 91.7 fL (80-100); MEAN CORPUSCULAR HEMOGLOBIN 30.3 pg (25-34); RED CELL DISTRIBUTION WIDTH CV 14.1 % (11.5-14.5); WHITE BLOOD COUNT 7.14 K/uL (4.8-10.8)
[2017-06-26] MEDS: LEVOTHYROXINE 25 MCG TAB PO SCH (06:12)
[2017-06-26] MEDS: ACETAMINOPHEN 500 MG TAB PO SCH ×3 (06:13→21:21)
[2017-06-26] MEDS: KETOROLAC TROMETHAMINE 15 MG/ML VIAL IV. SCH (06:13)
[2017-06-26 06:45] LABS: CALCIUM 8.1 mg/dl (8.5-10.1); CREATININE 0.94 mg/dl (0.60-1.40); POTASSIUM 4.4 mmol/L (3.5-5.1)
[2017-06-26 06:50] LABS: MEAN PLATELET VOLUME 11.1 fL (7.4-10.4); PLATELET COUNT 96 K/uL (130-400)
[2017-06-26 07:42] VITALS: BP 125/79; PULSE 79; TEMP 36.7; O2SAT 96
[2017-06-26] MEDS: FAMOTIDINE 20 MG TAB PO SCH ×2 (08:48→21:19)
[2017-06-26] MEDS: PANTOprazole SOD 40 MG TAB PO SCH (08:48)
[2017-06-26] MEDS: MULTIVITAMIN TAB PO SCH (08:48)
[2017-06-26] MEDS: DOCUSATE SODIUM 100 MG CAP PO SCH ×2 (08:48→21:18)
[2017-06-26] MEDS: GABAPENTIN 400 MG CAP PO SCH ×3 (08:48→21:20)
[2017-06-26] MEDS: SODIUM CHLORIDE 0.9% 1000ML 1,000 ML IV SCH (08:48)
[2017-06-26] MEDS: FERROUS GLUCONATE 324 MG TAB PO SCH ×3 (08:48→17:51)
[2017-06-26] MEDS: INSULIN ASPART 100 UNITS/ML 3 ML PEN SC SCH ×4 (08:52→21:28)
--- NOTE | 2017-06-26 09:26 | PROGRESS NOTE ---
DATE: 06/26/2017 CHIEF COMPLAINT: Status post right total knee arthroplasty. PROGRESS: Forrest seen and examined at bedside today. Overall, he is doing fairly well. He says he has not been up and ambulating yet. But he is sitting at bedside. He has very little pain in his knee. He has no complaints. PHYSICAL EXAMINATION: RIGHT KNEE: He is sitting with his knee flexed almost to 90 degrees. His dressing is clean and dry. He has active dorsiflexion and plantarflexion of his right ankle and sensation is intact throughout. VITAL SIGNS: His vital signs are all stable on room air. GENERAL: He is voiding on his own, the Roque has already been removed. LABORATORY DATA: He has an H&H today of 10.2 and 30.9. His glucose has been up and down, but is currently 120. IMPRESSION: Status post right total knee arthroplasty postop day #1. PLAN: At this point, he is doing fairly well. He will be seen by physical therapy today for ambulation. He is on Xarelto for a history of previous DVT. If he does well today and if his pain is well controlled, we will look to discharge him to home tomorrow morning.
[2017-06-26 11:48] VITALS: BP 136/81; PULSE 81; TEMP 36.8; O2SAT 98
[2017-06-26 11:57] VITALS: BP 147/78; PULSE 78; O2SAT 98
[2017-06-26] MEDS: RIVAROXABAN 10 MG TAB PO SCH (12:53)
[2017-06-26 15:24] VITALS: BP 123/68; PULSE 82; TEMP 36.9; O2SAT 97
[2017-06-26] MEDS: FoLIC ACID TAB 400 MCG TAB PO SCH (21:18)
[2017-06-26] MEDS: ATORVASTATIN 40 MG TAB PO SCH (21:18)
[2017-06-26] MEDS: ASCORBIC ACID 500 MG TAB PO SCH (21:19)
[2017-06-26] MEDS: SENNA 8.6 MG TAB PO SCH (21:20)
[2017-06-26] MEDS: INSULIN GLARGINE SOLOSTAR 100 UNITS/ML 3 ML PEN SC SCH (21:29)
[2017-06-26 23:00] VITALS: BP 152/82; PULSE 90; TEMP 36.8; O2SAT 95
[2017-06-27] MEDS: LEVOTHYROXINE 25 MCG TAB PO SCH (06:26)
[2017-06-27] MEDS: ACETAMINOPHEN 500 MG TAB PO SCH (06:27)
[2017-06-27 06:36] VITALS: BP 172/88; PULSE 93; TEMP 36.9; O2SAT 95
[2017-06-27] MEDS: GABAPENTIN 400 MG CAP PO SCH (07:24)
[2017-06-27] MEDS: RIVAROXABAN 10 MG TAB PO SCH (07:24)
[2017-06-27] MEDS: MULTIVITAMIN TAB PO SCH (07:24)
[2017-06-27] MEDS: FERROUS GLUCONATE 324 MG TAB PO SCH (07:24)
[2017-06-27] MEDS: DOCUSATE SODIUM 100 MG CAP PO SCH (07:24)
[2017-06-27] MEDS: PANTOprazole SOD 40 MG TAB PO SCH (07:24)
[2017-06-27] MEDS: FAMOTIDINE 20 MG TAB PO SCH (07:25)
[2017-06-27] MEDS: INSULIN ASPART 100 UNITS/ML 3 ML PEN SC SCH (07:44)
[2017-06-27] MEDS ORDERED: BISACODYL 5 MG TABEC PO ONE (07:45)
--- NOTE | 2017-06-27 07:46 | Progress Note ---
Subjective Date of Service: late entry for visit Jun 26, 2017. Subjective Pt evaluation today including: conversation w/ patient, physical exam, chart review, lab review Pain: knee, but controlled PO Intake: normal Voiding: no voiding problems (murray out, no issues) +flatus but no stool feels good hopeful for d/c home tomorrow Review of Systems Constitutional: No fever Respiratory: No cough, No shortness of breath, No dyspnea on exertion Cardiac: No chest pain, No orthopnea Abdomen: No pain Objective Vital Signs Date Time Temp Pulse Resp B/P (MAP) Pulse Ox O2 Delivery O2 Flow Rate FiO2 06/27/17 06:36 36.9 93 16 172/88 (116) 95 Room Air 06/27/17 00:05 Room Air 06/26/17 23:00 36.8 90 16 152/82 (105) 95 Room Air 06/26/17 19:30 Room Air 06/26/17 15:24 36.9 82 16 123/68 (86) 97 Room Air 06/26/17 11:57 78 98 06/26/17 11:48 36.8 81 15 136/81 (99) 98 Room Air 06/26/17 08:18 Room Air 06/26/17 07:42 36.7 79 16 125/79 (94) 96 Room Air Physical Exam General Appearance: no apparent distress ENT: pharynx normal Neck: no JVD Respiratory/Chest: lungs clear, no respiratory distress, no accessory muscle use Cardiovascular: regular rate, rhythm, no gallop, no murmur Abdomen: normal bowel sounds, non tender, soft, no organomegaly Extremities: + pedal edema (right foot - mild; none on left) Neurologic/Psychiatric: alert, oriented x 3 Laboratory Results Last 24 Hours Test 06/26/17 08:06 06/26/17 11:58 06/26/17 16:49 06/26/17 20:48 Bedside Glucose 137 mg/dl 218 mg/dl 184 mg/dl 247 mg/dl Test 06/27/17 06:35 06/27/17 07:37 Bedside Glucose 140 mg/dl Assessment and Plan 72yo male with CAD s/p CABG 2016, HTN, hyperlipidemia, T2DM, and hypothyroidism who is s/p right TKR by Dr. Forrest Tay, POD #1. He also has a h/o provoked RLE DVT in the setting of his CABG in 2016. 1. T2DM - continue his long-acting insulin at current dose; adjust novolog. Since he had been having lows at home I lowered his lantus dose at admission. Holding metformin. 2. CAD - no ischemic symptoms at this time. Cont his lipitor. I am uncertain why he does not take aspirin or beta unique. 3. hypothyroidism - continue synthroid per home dose. TSH compensated. 4. HTN - controlled at this time. 5. hyperlipidemia - continue his statin agent. 6. h/o provoked DVT, RLE, following his CABG - xarelto. 7. constipation - no evidence of ileus - bowel regimen. Will continue to follow.
[2017-06-27 07:57] LABS: HEMATOCRIT 28.5 % (42-52); HEMOGLOBIN 9.6 g/dL (14.0-18.0); MEAN CELL VOLUME 89.9 fL (80-100); MEAN CORPUSCULAR HEMOGLOBIN 30.3 pg (25-34); MEAN CORPUSCULAR HGB CONC 33.7 g/dl (32-36); MEAN PLATELET VOLUME 11.3 fL (7.4-10.4); PLATELET COUNT 114 K/uL (130-400); RED CELL DISTRIBUTION WIDTH CV 14.1 % (11.5-14.5); RED CELL DISTRIBUTION WIDTH SD 46.8 fL (36.4-46.3); WHITE BLOOD COUNT 9.54 K/uL (4.8-10.8)
[2017-06-27 08:31] LABS: CALCIUM 8.7 mg/dl (8.5-10.1); CREATININE 0.94 mg/dl (0.60-1.40); POTASSIUM 4.3 mmol/L (3.5-5.1)
[2017-06-27] MEDS ORDERED: POLYETHYLENE (MIRALAX) 17 GM PACK PO SCH (09:00)
[2017-06-27 09:13] VITALS: BP 128/73; PULSE 77; O2SAT 98
[2017-06-27 09:14] VITALS: TEMP 36.9; O2SAT 95
--- NOTE | 2017-06-27 10:03 | Discharge Instructions ---
Discharge Instructions Date of Service Jun 27, 2017. Admission Reason for Admission: Right Knee Degenerative Joint Disease, Knee Pain Discharge Discharge Diagnosis / Problem: S/P R TKA Discharge Goals Goal(s): Decrease discomfort, Improve function, Increase independence Activity Recommendations Activity Limitations: per Instructions/Follow-up section (per orthopedics) . Instructions / Follow-Up Instructions / Follow-Up Diabetes: - Since you have several low blood sugars at home would recommend lowering your Toujeo (long acting insulin) to 15 units at night instead of 22 units. - Would recommend to keep track of your sugars so you can show them to your family doctor so they can adjust your regimen to help control your sugars. - Ultimately we would like to see good sugars and prevent them from going high. However, low sugars can be just as dangerous if not more. - If your sugars continue to run high then continue your previously prescribed 22 units. Current Hospital Diet Patient's current hospital diet: Diabetes Type 2 Diet Discharge Diet Recommended Diet: Diabetes Type 2 Diet Procedures Procedures Performed: Right Total Knee Arthroplasty Pending Studies Studies pending at discharge: no Laboratory Results Hemoglobin A1c Test 06/07/17 10:57 Range/Units Estimated Average Glucose 160 mg/dl Hemoglobin A1c 7.2 H 4.5-5.6 % Medical Emergencies . Who to Call and When: Medical Emergencies: If at any time you feel your situation is an emergency, please call 911 immediately. . Non-Emergent Contact Non-Emergency issues call your: Primary Care Provider Call Non-Emergent contact if: you have a fever, your pain is concerning you, you have any medication questions . . "Provider Documentation" section prepared by Eleonora Fulton. .
[2017-06-27] MEDS ORDERED: INSU1.2I INJ (10:05)
[2017-06-27 10:20] VITALS: BP 128/82; PULSE 71
--- NOTE | 2017-06-27 10:42 | PROGRESS NOTE ---
DATE: 06/27/2017 CHIEF COMPLAINT: Status post right total knee arthroplasty postop day #2. PROGRESS: Forrest was seen and examined at bedside today. Overall, he is doing well. He has soreness in his knee, but he said he expected it. He ambulated well yesterday with physical therapy, has no complaints. PHYSICAL EXAMINATION: RIGHT KNEE: The dressing has been changed. The incision is clean and dry. There is no drainage. He has active dorsiflexion, plantar flexion of his right ankle. Sensation is intact throughout. His vital signs are all stable on room air. He is voiding on his own. LABORATORY DATA: He has an H&H today of 9.6 and 28.5. His glucose is 270. IMPRESSION: Status post right total knee arthroplasty postop day #2. PLAN: At this point, he is doing as well as expected. We will continue to control sugars. He worked well yesterday with physical therapy. He is stable for discharge to home later this morning. We will keep him on Xarelto prophylactic dose for history of DVT in the past.
--- NOTE | 2017-06-27 12:00 | Hospitalist Progress Note ---
Hospitalist Progress Note Date of Service Jun 27, 2017. (Eleonora Fulton PA-C) Subjective Pt evaluation today including: conversation w/ patient, physical exam, chart review, lab review, review of studies, review of inpatient medication list Patient seen and evaluated. No acute events overnight. Patient reporting good pain control. Tolerating diet without issue. Planning for discharge home later today. Discussed his diabetes and reporting that his manages this for him. States he does know that he has labile sugars. States they will range from 60s-200+ D/C instructions given as was not at bedside to consider reducing Toujeo to 15 units SC daily and continuing Metformin. If sugars stay more elevated then recommended to continue home dosing and to follow-up with PCP who manages his DM. Constitutional: No fever, No chills Respiratory: No cough, No shortness of breath Cardiovascular: No chest pain, No palpitations Abdomen: + constipation, No pain, No nausea, No vomiting, No diarrhea Musculoskeletal: + joint pain (R knee - controlled with oral meds), No swelling, No calf pain Heme: No abnormal bleeding/bruising (Eleonora Fulton PA-C) Objective Vital Signs Date Time Temp Pulse Resp B/P (MAP) Pulse Ox O2 Delivery O2 Flow Rate FiO2 06/27/17 10:20 71 128/82 (97) 06/27/17 09:14 36.9 71 16 95 Room Air 06/27/17 09:13 77 98 06/27/17 07:30 Room Air 06/27/17 06:36 36.9 93 16 172/88 (116) 95 Room Air 06/27/17 00:05 Room Air 06/26/17 23:00 36.8 90 16 152/82 (105) 95 Room Air 06/26/17 19:30 Room Air 06/26/17 15:24 36.9 82 16 123/68 (86) 97 Room Air 06/26/17 11:57 78 98 (Eleonora Fulton PA-C) Physical Exam General Appearance: no apparent distress Eyes: sclerae normal ENT: hearing grossly normal Neck: supple, no JVD, trachea midline Respiratory/Chest: lungs clear, normal breath sounds, no respiratory distress, no accessory muscle use Cardiovascular: regular rate, rhythm Abdomen: normal bowel sounds, non tender, soft Extremities: no pedal edema, no calf tenderness, + pertinent finding (dressing with minimal blood - no active bleeding at R knee) Neurologic/Psychiatric: alert Skin: normal color, warm/dry (Eleonora Fulton PA-C) Laboratory Results Last 24 Hours Test 06/26/17 11:58 06/26/17 16:49 06/26/17 20:48 06/27/17 06:35 Bedside Glucose 218 mg/dl 184 mg/dl 247 mg/dl 140 mg/dl Test 06/27/17 07:45 White Blood Count 9.54 K/uL Red Blood Count 3.17 M/uL Hemoglobin 9.6 g/dL Hematocrit 28.5 % Mean Corpuscular Volume 89.9 fL Mean Corpuscular Hemoglobin 30.3 pg Mean Corpuscular Hemoglobin Concent 33.7 g/dl RDW Standard Deviation 46.8 fL RDW Coefficient of Variation 14.1 % Platelet Count 114 K/uL Mean Platelet Volume 11.3 fL Sodium Level 136 mmol/L Potassium Level 4.3 mmol/L Chloride Level 106 mmol/L Carbon Dioxide Level 22 mmol/L Anion Gap 8.0 mmol/L Blood Urea Nitrogen 21 mg/dl Creatinine 0.94 mg/dl Est Creatinine Clear Calc Drug Dose 63.1 ml/min Estimated GFR () 92.9 Estimated GFR (Non- 80.1 BUN/Creatinine Ratio 22.2 Random Glucose 270 mg/dl Calcium Level 8.7 mg/dl (Eleonora Fulton PA-C) Assessment and Plan 72yo male with CAD s/p CABG 2016, HTN, hyperlipidemia, T2DM, and hypothyroidism who is s/p right TKR by Dr. Forrest Tay, POD #1. He also has a h/o provoked RLE DVT in the setting of his CABG in 2016. 1. T2DM - Recommendations given to reduce Toujeo to 15 units at home and to log sugars so PCP can assess and make necessary adjustments - Reports sugars are labile between 60-200+ and has a lot of lows - given age and recent orthopedic surgery, hypoglycemia poses more of a threat to his overall well-being then elevated sugars; A1c is 7 which is acceptable given age 2. CAD and HLD - STABLE - Cont his lipitor. - Is not on BB or ASA 3. Hypothyroidism - COMPENSATED - continue synthroid per home dose. 4. HTN - STABLE 6. H/O Provoked DVT, RLE, following his CABG - Xarelto placed for DVT prophylaxis 7. Constipation - recommended bowel regimen - patient plans to utilize laxatives when he gets home to prevent any bowel accidents Suitable for D/C. (Eleonora Fulton, PA-C) Attending Attestation: Pt seen/examined, chart reviewed, care plan d/w PA Eleonora Fulton. I agree w/ the collins components of her documentation. Pt feels good. ambulating. no bowel movement, but having flatus, and is eating w/o any intolerance. no chest pain no dyspnea gen - nad neck - no JVD heart - RRR, s1, s2 lungs - cta b/l abd - soft, ND, BS+ ext - right knee dressing in place, mild right ankle edema, no edema on left Hb 9.6 Cr 0.9 A/P: 1. right TKR 2. xarelto for DVT proph 3. CAD - stable, no ischemic sx's 4. T2DM - w/ hypoglycemia at home - agree with reduction in Toujeo at d/c 5. mild acute blood loss anemia - agree with Fe Supplementation for 1-2 months 6. constipation - no evidence of ileus - counseled on importance of bowel regimen pt is medically stable for d/c today thanks for the consult Ted HAAS MD (Tanmay Haas MD)
== END 2017-06-27 11:11 | disposition home health service (06) | DRG 470 ==
LOC: C.ACU 05:57 → C.3E 06:35 → ENRESERV 11:43
PROVIDERS: ADMIT Orthopaedic Surgery Sports Medicine; ATTEND Orthopaedic Surgery Sports Medicine
PROC: 0SRC0J9 Replacement of Right Knee Joint with Synthetic Substitute, Cemented, Open Approach (ICD-10-PCS; principal; 2017-06-25 09:00)
DX: M17.11 Unilateral primary osteoarthritis, right knee (principal); K59.00 Constipation, unspecified; E11.40 Type 2 diabetes mellitus with diabetic neuropathy, unspecified; I25.10 Atherosclerotic heart disease of native coronary artery without angina pectoris; E78.5 Hyperlipidemia, unspecified; I10 Essential (primary) hypertension; E03.9 Hypothyroidism, unspecified; Z86.718 Personal history of other venous thrombosis and embolism; Z96.652 Presence of left artificial knee joint; Z95.1 Presence of aortocoronary bypass graft; Z90.49 Acquired absence of other specified parts of digestive tract; Z79.4 Long term (current) use of insulin; Z79.82 Long term (current) use of aspirin; Z79.899 Other long term (current) drug therapy; Z88.5 Allergy status to narcotic agent; Z82.49 Family history of ischemic heart disease and other diseases of the circulatory system